=== PATIENT | female | born 1995 | race Caucasian/White ===

== ENCOUNTER 2017-07-02 12:44 | Inpatient (IN) | payer MEDICAID, MEDICARE, OTHER ==
[~2017-07-02] VITALS: Ht 172.7 cm; Wt 52.7 kg
[~2017-07-02 12:44] MED LIST: CARB200T6 PO; CLINT30G TP; CLON.5 PO; LEVO100 PO; QUET200T PO; TOPI25 PO
[2017-07-02] MEDS ORDERED: FLUO-191 PO (13:05)
[2017-07-02] MEDS ORDERED: AMPH30TA3 PO (13:05)
[2017-07-02] MEDS ORDERED: LORazepam 2 MG/ML VIAL IM ONE (13:15)
[2017-07-02] MEDS ORDERED: DiphenhydrAMINE HCL 50 MG/ML VIAL IM ONE (13:15)
[2017-07-02 13:18] LABS: BASOPHILS # (AUTO) 0.02 K/uL (0.00-0.20); BASOPHILS % (AUTO) 0.2 % (0.0-2.0); EOSINOPHILS % (AUTO) 0.02 % (1.0-6.0); HEMATOCRIT 42.4 % (36-46); HEMOGLOBIN 13.7 g/dL (12.0-16.0); LYMPHOCYTES # (AUTO) 2.5 K/uL (1.0-4.8); LYMPHOCYTES % (AUTO) 24.4 % (22.0-44.0); MEAN CORPUSCULAR HEMOGLOBIN 32.2 pg (26.0-34.0); MEAN CORPUSCULAR HGB CONC 32.3 G/dL (31.0-37.0); MEAN CORPUSCULAR VOLUME 100 fL (80-100); MONOCYTES # (AUTO) 0.5 K/uL (0.1-1.0); MONOCYTES % (AUTO) 4.7 % (2.0-9.0); NEUTROPHILS # (AUTO) 7.1 K/uL (1.8-7.7); NEUTROPHILS % (AUTO) 70.7 % (40.0-70.0); PLATELET COUNT (AUTO) 331 K/uL (150-450); RED BLOOD CELL COUNT(AUTO) 4.25 MIL/uL (4.00-5.20); RED CELL DISTRIBUTION WIDTH 13.4 % (11.5-14.5); WHITE BLOOD COUNT (AUTO) 10.1 K/uL (4.5-11.0)
[2017-07-02 13:30] LABS: ANION GAP 17 mmol/L (8-16); CALCIUM, TOTAL 9.7 mg/dL (8.8-10.5); CARBON DIOXIDE 23 mmol/L (22-29); CHLORIDE 101 mmol/L (98-107); CREATININE 1.05 mg/dL (0.60-1.30); GLOMERULAR FILTR. RATE CALC > 60 mL/min (>60); POTASSIUM 4.2 mmol/L (3.5-5.1); SODIUM SERUM 141 mmol/L (136-145); UREA NITROGEN, BLOOD 5 mg/dL (7-18)
[2017-07-02 13:43] LABS: ALANINE AMINOTRANSFERASE 31 U/L (12-78); ALBUMIN 4.5 g/dL (3.4-5.0); ASPARTATE AMINOTRANSFERASE 31 U/L (15-37); BILIRUBIN,TOTAL 0.4 mg/dL (0.1-1.0); THYROID STIMULATING HORMONE 33.01 uIU/mL (0.36-3.74)
[2017-07-02] MEDS ORDERED: HALOPERIDOL LACTATE 5 MG/ML VIAL IM ONE (13:45)
[2017-07-02] MEDS ORDERED: LEVOTHYROXINE SODIUM 100 MCG TABLET PO ONE (15:15)
[2017-07-02] MEDS ORDERED: PERTUSS(ACELL),DIPH,TET VAC/PF 0.5 ML VIAL IM ONE (16:15)
[2017-07-02] MEDS ORDERED: SODIUM CHLORIDE 0.9% 250 ML IRRIG SOLUTION BOTTLE IRRIG ONE (16:15)
[2017-07-02 16:48] LABS: SALICYLATE < 2.8 mg/dL (2.8-20.0)
[2017-07-02 16:52] LABS: ACETAMINOPHEN < 2 mcg/mL (10-30)
[2017-07-02] MEDS ORDERED: LORazepam 2 MG TABLET PO PRN (17:30)
[2017-07-02 17:53] LABS: CHOL/HDL RATIO 2.1 (3.9-5.7)
[2017-07-02 18:59] VITALS: BP 133/76
[2017-07-02] MEDS ORDERED: ACETAMINOPHEN 325 MG TABLET PO PRN (21:15)
[2017-07-02] MEDS ORDERED: IBUPROFEN 400 MG TABLET PO PRN (21:15)
[2017-07-03] MEDS: LEVOTHYROXINE SODIUM 100 MCG TABLET PO SCH (06:56)
[2017-07-03 07:08] LABS: THYROID STIMULATING HORMONE 38.87 uIU/mL (0.36-3.74)
[2017-07-03 08:47] VITALS: BP 125/75
[2017-07-03] MEDS: BACITRACIN 28.4 GM OINTMENT TP SCH (10:55)
[2017-07-03] MEDS: CarBAMazepine 200 MG TABLET PO SCH ×2 (13:24→17:30)
[2017-07-03 16:00] VITALS: BP 122/76
[2017-07-03] MEDS: HALOPERIDOL 5 MG TABLET PO PRN (19:22)
[2017-07-04] MEDS: LEVOTHYROXINE SODIUM 100 MCG TABLET PO SCH (06:58)
[2017-07-04] MEDS ORDERED: LEVOTHYROXINE SODIUM 100 MCG TABLET PO SCH (07:00)
[2017-07-04 08:00] VITALS: BP 115/77
[2017-07-04] MEDS: CarBAMazepine 200 MG TABLET PO SCH ×3 (08:08→17:41)
[2017-07-04] MEDS: FLUoxetine HCL 20 MG CAPSULE PO SCH (08:08)
[2017-07-04] MEDS: BACITRACIN 28.4 GM OINTMENT TP SCH (08:09)
[2017-07-04 09:05] VITALS: BP 115/77
[2017-07-04] MEDS ORDERED: ALBUTEROL SULFATE HFA 90 MCG/PUFF 8 GM INHALER IH PRN (10:45)
[2017-07-04] MEDS: HALOPERIDOL 5 MG TABLET PO PRN (20:28)
[2017-07-04 22:52] VITALS: BP 121/82
[2017-07-04] MEDS: ZOLPIDEM TARTRATE 10 MG TABLET PO PRN (23:09)
[2017-07-05] MEDS: LEVOTHYROXINE SODIUM 100 MCG TABLET PO SCH (06:48)
[2017-07-05 08:08] VITALS: BP 149/92
[2017-07-05] MEDS: CarBAMazepine 200 MG TABLET PO SCH ×3 (09:35→16:35)
[2017-07-05] MEDS: FLUoxetine HCL 20 MG CAPSULE PO SCH (09:35)
[2017-07-05] MEDS: BACITRACIN 28.4 GM OINTMENT TP SCH (09:36)
[2017-07-05 17:29] VITALS: BP 129/88
[2017-07-05] MEDS: ZOLPIDEM TARTRATE 10 MG TABLET PO PRN (23:41)
[2017-07-06] MEDS: LEVOTHYROXINE SODIUM 100 MCG TABLET PO SCH (05:59)
[2017-07-06] MEDS: BACITRACIN 28.4 GM OINTMENT TP SCH (08:08)
[2017-07-06] MEDS: FLUoxetine HCL 20 MG CAPSULE PO SCH (08:08)
[2017-07-06] MEDS: CarBAMazepine 200 MG TABLET PO SCH ×3 (08:08→17:02)
[2017-07-06 08:20] VITALS: BP 119/96
[2017-07-06 16:05] VITALS: BP 110/78
[2017-07-06] MEDS ORDERED: MAGNESIUM HYDROXIDE SUSPENSION 30 ML UDCUP PO PRN (16:45)
[2017-07-07 02:46] VITALS: BP 111/74
[2017-07-07] MEDS: LEVOTHYROXINE SODIUM 100 MCG TABLET PO SCH (06:32)
[2017-07-07 08:22] VITALS: BP 125/86
[2017-07-07] MEDS: FLUoxetine HCL 20 MG CAPSULE PO SCH (08:35)
[2017-07-07] MEDS: BACITRACIN 28.4 GM OINTMENT TP SCH (08:35)
[2017-07-07] MEDS: CarBAMazepine 200 MG TABLET PO SCH (08:35)
== END 2017-07-07 12:15 | disposition home or self-care (01) | DRG 885 ==
LOC: EMS 12:45 → EEVIPCON 12:45 → 3EC 17:47
PROVIDERS: ADMIT Psychiatry & Neurology Psychiatry; ATTEND Psychiatry & Neurology Psychiatry
DX: F25.9 Schizoaffective disorder, unspecified (principal); R45.851 Suicidal ideations; Z78.1 Physical restraint status; E03.9 Hypothyroidism, unspecified; E78.5 Hyperlipidemia, unspecified; F31.9 Bipolar disorder, unspecified; F90.9 Attention-deficit hyperactivity disorder, unspecified type; J45.909 Unspecified asthma, uncomplicated; S61.519A Laceration without foreign body of unspecified wrist, initial encounter; Z91.14 Patient's other noncompliance with medication regimen; W45.8XXA Other foreign body or object entering through skin, initial encounter; Y93.89 Activity, other specified; Y92.89 Other specified places as the place of occurrence of the external cause; Y99.8 Other external cause status
CPT/HCPCS: 84439; 84443; 90471; 90715; 96372; 99285; G0480; G0481; J1200; J1630; J2060

== ENCOUNTER 2017-08-08 11:22 | Emergency (ER) | payer MEDICARE, OTHER ==
[~2017-08-08] VITALS: Ht 170.2 cm; Wt 57.3 kg
[~2017-08-08 11:22] MED LIST changes: -CLINT30G TP; -CLON.5 PO; +FLUO-191 PO; -QUET200T PO; -TOPI25 PO
[2017-08-08 16:10] VITALS: BP 132/79
== END 2017-08-08 16:12 | disposition home or self-care (01) ==
LOC: EMS 11:24
DX: Z76.0 Encounter for issue of repeat prescription (principal); E03.9 Hypothyroidism, unspecified; F32.9 Major depressive disorder, single episode, unspecified
CPT/HCPCS: 99283

== ENCOUNTER 2017-08-17 22:47 | Inpatient (IN) | payer MEDICARE, OTHER ==
[~2017-08-17] VITALS: Ht 170.2 cm; Wt 54.6 kg
[2017-08-17] MEDS ORDERED: CLON1 PO (22:55)
[2017-08-17] MEDS ORDERED: ADDE10 PO (22:55)
[2017-08-17] MEDS ORDERED: ALPR1TAB7 PO (22:55)
[2017-08-17] MEDS ORDERED: DiphenhydrAMINE HCL 50 MG/ML VIAL IM ONE (23:15)
[2017-08-17] MEDS ORDERED: HALOPERIDOL LACTATE 5 MG/ML VIAL IM ONE (23:15)
[2017-08-17] MEDS ORDERED: LORazepam 2 MG/ML VIAL IM ONE (23:15)
[2017-08-17 23:59] LABS: BASOPHILS # (AUTO) 0.06 K/uL (0.00-0.20); BASOPHILS % (AUTO) 0.9 % (0.0-2.0); EOSINOPHILS # (AUTO) 0.06 K/uL (0.00-0.70); EOSINOPHILS % (AUTO) 0.84 % (1.0-6.0); HEMATOCRIT 37.1 % (36-46); HEMOGLOBIN 12.6 g/dL (12.0-16.0); LYMPHOCYTES # (AUTO) 1.5 K/uL (1.0-4.8); LYMPHOCYTES % (AUTO) 21.9 % (22.0-44.0); MEAN CORPUSCULAR HEMOGLOBIN 33.2 pg (26.0-34.0); MEAN CORPUSCULAR HGB CONC 33.8 G/dL (31.0-37.0); MEAN CORPUSCULAR VOLUME 98 fL (80-100); MONOCYTES # (AUTO) 0.5 K/uL (0.1-1.0); NEUTROPHILS # (AUTO) 4.8 K/uL (1.8-7.7); NEUTROPHILS % (AUTO) 69.3 % (40.0-70.0); PLATELET COUNT (AUTO) 285 K/uL (150-450); RED BLOOD CELL COUNT(AUTO) 3.78 MIL/uL (4.00-5.20); RED CELL DISTRIBUTION WIDTH 13.6 % (11.5-14.5)
[2017-08-18 00:20] LABS: ALANINE AMINOTRANSFERASE 26 U/L (12-78); ALBUMIN 3.9 g/dL (3.4-5.0); ALKALINE PHOSPHATASE 45 U/L (46-116); ANION GAP 9 mmol/L (8-16); ASPARTATE AMINOTRANSFERASE 27 U/L (15-37); BILIRUBIN,TOTAL 0.4 mg/dL (0.1-1.0); CALCIUM, TOTAL 8.8 mg/dL (8.8-10.5); CARBON DIOXIDE 29 mmol/L (22-29); CHLORIDE 102 mmol/L (98-107); CREATININE 1.06 mg/dL (0.60-1.30); GLOMERULAR FILTR. RATE CALC > 60 mL/min (>60); GLUCOSE,RANDOM 110 mg/dL (70-110); SODIUM SERUM 140 mmol/L (136-145); TOTAL PROTEIN, SERUM 7.4 g/dL (6.4-8.2); UREA NITROGEN, BLOOD 17 mg/dL (7-18)
[2017-08-18] MEDS ORDERED: POTASSIUM CHLORIDE 20 MEQ ER TABLET PO ONE (01:00)
[2017-08-18] MEDS ORDERED: OLANZapine 5 MG RAPDIS TABLET PO PRN (01:15)
[2017-08-18 03:10] VITALS: BP 115/62
[2017-08-18] MEDS ORDERED: INFLUENZA VIRUS VACCINE QVS 2017-18 (3YR+)/PF 60 MCG/0.5 ML SYRINGE IM ONE (07:30)
[2017-08-18 08:47] VITALS: BP 115/68
[2017-08-18 16:20] VITALS: BP 107/61
[2017-08-18] MEDS: DIVALPROEX SODIUM 500 MG DR TABLET PO SCH (16:37)
[2017-08-19 06:46] VITALS: BP 114/63
[2017-08-19] MEDS: LEVOTHYROXINE SODIUM 100 MCG TABLET PO SCH (06:52)
[2017-08-19 08:04] LABS: CHOL/HDL RATIO 2.7 (3.9-5.7); CHOLESTEROL 171 mg/dL (131-200); FREE T4 (FREE THYROXINE) 1.21 ng/dL (0.76-1.46); HCG,QUANTITATIVE < 1 mIU/mL (0-6); HDL CHOLESTEROL 64 mg/dL (40-60); LDL CHOL (CALC.) 89 mg/dL (0-130); POTASSIUM 4.1 mmol/L (3.5-5.1); THYROID STIMULATING HORMONE 0.06 uIU/mL (0.36-3.74); TRIGLYCERIDES 91 mg/dL (15-150)
[2017-08-19 08:30] VITALS: BP 118/72
[2017-08-19] MEDS: DIVALPROEX SODIUM 500 MG DR TABLET PO SCH ×2 (08:55→16:38)
[2017-08-19] MEDS: LORazepam 2 MG TABLET PO PRN ×2 (10:33→16:38)
[2017-08-19] MEDS ORDERED: PROMETHAZINE HCL 25 MG TABLET PO PRN (11:00)
[2017-08-19] MEDS ORDERED: GuaiFENesin/D-METHORPHAN [SUGAR-FREE] 200-20MG/10 ML SYRUP UDCUP PO PRN (11:00)
[2017-08-19] MEDS ORDERED: ACETAMINOPHEN 325 MG TABLET PO PRN (11:00)
[2017-08-19] MEDS ORDERED: MAG HYDROX/AL HYDROX/SIMETH ES 30 ML SUSPENSION UDCUP PO PRN (11:00)
[2017-08-19] MEDS ORDERED: LOPERAMIDE HCL 2 MG CAPSULE PO PRN (11:00)
[2017-08-19] MEDS ORDERED: OLANZapine 5 MG RAPDIS TABLET PO PRN (11:00)
[2017-08-19] MEDS ORDERED: TUBERCULIN, PURIFIED PROTEIN DERIVATIVE 5 TU/0.1 ML SYG ID ONE (11:00)
[2017-08-19] MEDS ORDERED: MAGNESIUM HYDROXIDE SUSPENSION 30 ML UDCUP PO PRN (11:00)
[2017-08-19 16:00] VITALS: BP 122/75
[2017-08-19] MEDS: THIAMINE HCL 100 MG TABLET PO SCH (16:38)
[2017-08-19] MEDS: HydrOXYzine PAMOATE 50 MG CAPSULE PO PRN (20:28)
[2017-08-19] MEDS: ZOLPIDEM TARTRATE 10 MG TABLET PO PRN (21:05)
[2017-08-20] MEDS: LEVOTHYROXINE SODIUM 100 MCG TABLET PO SCH (06:14)
[2017-08-20 06:47] VITALS: BP 129/69
[2017-08-20] MEDS: FOLIC ACID 1 MG TABLET PO SCH (08:24)
[2017-08-20] MEDS: LORazepam 2 MG TABLET PO PRN ×4 (08:24→21:12)
[2017-08-20] MEDS: HydrOXYzine PAMOATE 50 MG CAPSULE PO PRN ×2 (08:24→13:18)
[2017-08-20] MEDS: DIVALPROEX SODIUM 500 MG DR TABLET PO SCH ×2 (08:24→16:50)
[2017-08-20] MEDS: MULTIVITAMINS WITH MINERALS, THERAPEUTIC TABLET PO SCH (08:24)
[2017-08-20 08:26] VITALS: BP 127/68
[2017-08-20] MEDS: THIAMINE HCL 100 MG TABLET PO SCH ×2 (08:40→16:50)
[2017-08-20 16:00] VITALS: BP 107/59
[2017-08-20] MEDS: CarBAMazepine 200 MG TABLET PO SCH (16:50)
[2017-08-20] MEDS: ZOLPIDEM TARTRATE 10 MG TABLET PO PRN (20:03)
[2017-08-21] MEDS: LEVOTHYROXINE SODIUM 100 MCG TABLET PO SCH (06:16)
[2017-08-21 07:09] VITALS: BP 128/80
[2017-08-21 08:11] VITALS: BP 106/71
[2017-08-21] MEDS: FOLIC ACID 1 MG TABLET PO SCH (08:12)
[2017-08-21] MEDS: MULTIVITAMINS WITH MINERALS, THERAPEUTIC TABLET PO SCH (08:12)
[2017-08-21] MEDS: DIVALPROEX SODIUM 500 MG DR TABLET PO SCH (08:12)
[2017-08-21] MEDS: CarBAMazepine 200 MG TABLET PO SCH (08:12)
[2017-08-21] MEDS: THIAMINE HCL 100 MG TABLET PO SCH (08:13)
[2017-08-21] MEDS ORDERED: DIVA250T4 PO (08:26)
[2017-08-21] MEDS ORDERED: FLUoxetine HCL 20 MG CAPSULE PO SCH (09:00)
== END 2017-08-21 10:45 | disposition home or self-care (01) | DRG 885 ==
LOC: EMS 22:55 → B3A 08-18 01:48
PROVIDERS: ADMIT Psychiatry & Neurology Psychiatry; ATTEND Psychiatry & Neurology Psychiatry
DX: F25.9 Schizoaffective disorder, unspecified (principal); R45.851 Suicidal ideations; F39 Unspecified mood [affective] disorder; F32.9 Major depressive disorder, single episode, unspecified; F41.9 Anxiety disorder, unspecified; F90.9 Attention-deficit hyperactivity disorder, unspecified type; R63.0 Anorexia; F44.81 Dissociative identity disorder; Z53.29 Procedure and treatment not carried out because of patient's decision for other reasons; J45.909 Unspecified asthma, uncomplicated; E03.9 Hypothyroidism, unspecified; E78.5 Hyperlipidemia, unspecified; Z79.899 Other long term (current) drug therapy
CPT/HCPCS: 84132; 84439; 84443; 90471; 96372; 99285; G0480; J1200; J1630; J2060

== ENCOUNTER 2019-07-05 20:13 | Inpatient (IN) | payer MEDICARE, MEDICAID ==
[~2019-07-05] VITALS: Ht 167.6 cm; Wt 63.5 kg
[~2019-07-05 20:13] MED LIST changes: +DIVA250T4 PO
[2019-07-05 20:38] LABS: GLUCOSE,POINT OF CARE 104 MG/DL (70-110)
[2019-07-05 21:41] LABS: BASOPHILS % (AUTO) 0.3 % (0.0-2.0); EOSINOPHILS % (AUTO) 0.9 % (1.0-6.0); HEMATOCRIT 40.4 % (36-46); HEMOGLOBIN 13.6 g/dL (12.0-16.0); LYMPHOCYTES # (AUTO) 0.9 K/uL (1.0-4.8); LYMPHOCYTES % (AUTO) 9.8 % (22.0-44.0); MEAN CORPUSCULAR HEMOGLOBIN 32.9 pg (26.0-34.0); MEAN CORPUSCULAR HGB CONC 33.8 G/dL (31.0-37.0); MEAN CORPUSCULAR VOLUME 97 fL (80-100); MONOCYTES # (AUTO) 0.6 K/uL (0.1-1.0); MONOCYTES % (AUTO) 6.9 % (2.0-9.0); NEUTROPHILS # (AUTO) 7.4 K/uL (1.8-7.7); NEUTROPHILS % (AUTO) 82.1 % (40.0-70.0); PLATELET COUNT (AUTO) 336 K/uL (150-450); RED BLOOD CELL COUNT(AUTO) 4.15 MIL/uL (4.00-5.20); RED CELL DISTRIBUTION WIDTH 12.8 % (11.5-14.5)
[2019-07-05 21:50] LABS: APPEARANCE,URINE CLOUDY (CLEAR); BILIRUBIN,URINE NEGATIVE (NEGATIVE); GLUCOSE, URINE (UA) NEGATIVE (NEGATIVE); KETONES,URINE NEGATIVE (NEGATIVE); LEUKOCYTE ESTERASE ,URINE TRACE (NEGATIVE); NITRATE,URINE NEGATIVE (NEGATIVE); OCCULT BLOOD,URINE TRACE (NEGATIVE); PH,URINE 5.5 (5.0-8.0); PROTEIN,URINE TRACE (NEGATIVE); UROBILINOGEN,URINE 0.2 mg/dL (<=1.0)
[2019-07-05 21:52] LABS: AMPHET/METH SCREEN,URINE POSITIVE (NEGATIVE); BARBITURATE SCREEN, URINE NEGATIVE (NEGATIVE); BENZODIAZEPINES SCREEN,URINE NEGATIVE (NEGATIVE); CANNABINOID SCREEN,URINE POSITIVE (NEGATIVE); COCAINE SCREEN,URINE NEGATIVE (NEGATIVE); METHADONE SCREEN, URINE NEGATIVE (NEGATIVE); OPIATE SCREEN,URINE NEGATIVE (NEGATIVE)
[2019-07-05 21:53] LABS: ANION GAP 11 mmol/L (8-16); CALCIUM, TOTAL 9.5 mg/dL (8.8-10.5); CARBON DIOXIDE 25 mmol/L (22-29); CHLORIDE 100 mmol/L (98-107); CREATININE 0.82 mg/dL (0.60-1.30); GLOMERULAR FILTR. RATE CALC > 60 mL/min (>60); GLUCOSE,RANDOM 104 mg/dL (70-110); POTASSIUM 3.9 mmol/L (3.5-5.1); SODIUM SERUM 136 mmol/L (136-145)
[2019-07-05 21:53] LABS: PHENCYCLIDINE SCREEN,URINE NEGATIVE (NEGATIVE)
[2019-07-05 21:59] LABS: ALANINE AMINOTRANSFERASE 21 U/L (12-78); ALKALINE PHOSPHATASE 59 U/L (46-116); ASPARTATE AMINOTRANSFERASE 21 U/L (15-37); BILIRUBIN,TOTAL 0.5 mg/dL (0.1-1.0); TOTAL PROTEIN, SERUM 7.5 g/dL (6.4-8.2)
[2019-07-05 22:00] LABS: RBC,URINE 0-2 /HPF (0-2); SQUAMOUS EPITHELIAL CELL,UR Many /LPF (None Seen)
[2019-07-05 22:01] LABS: BACTERIA,URINE Few /HPF (None Seen)
[2019-07-05 22:11] LABS: UREA NITROGEN, BLOOD 5 mg/dL (7-18)
[2019-07-05] MEDS ORDERED: SODIUM CHLORIDE 0.9% 1,000 ML IV ONE (22:30)
[2019-07-05] MEDS ORDERED: LORazepam 1 MG TABLET PO ONE (22:30)
[2019-07-05 22:43] LABS: SALICYLATE 1.6 mg/dL (2.8-20.0)
[2019-07-05] MEDS ORDERED: LORazepam 2 MG/ML VIAL IVP ONE ×2 (22:45→23:00)
[2019-07-05] MEDS ORDERED: ONDANSETRON HCL 4 MG/2 ML VIAL IVP PRN (22:45)
[2019-07-05] MEDS ORDERED: 0.9% SODIUM CHLORIDE 10 ML SYRINGE IVP PRN (22:45)
[2019-07-05] MEDS ORDERED: ACETAMINOPHEN 325 MG TABLET PO PRN (22:45)
[2019-07-05 23:03] LABS: CREATINE KINASE, TOTAL ONLY 167 U/L (26-192)
[2019-07-05 23:13] LABS: ACETAMINOPHEN < 2 mcg/mL (10-30); CARBAMAZEPINE (TEGRETOL) < 0.5 mcg/mL (4.0-12.0); THYROID STIMULATING HORMONE < 0.01 uIU/mL (0.36-3.74)
[2019-07-06 01:24] VITALS: BP 154/95
[2019-07-06 05:12] VITALS: BP 152/95
[2019-07-06 07:47] VITALS: BP 138/82
[2019-07-06] MEDS ORDERED: LEVO125T4 PO (09:56)
[2019-07-06] MEDS ORDERED: AMPH30TA3 PO (09:58)
[2019-07-06] MEDS ORDERED: ClonazePAM 1 MG TABLET PO ONE (10:00)
[2019-07-06] MEDS ORDERED: ClonazePAM 0.5 MG TABLET PO ONE (10:00)
[2019-07-06] MEDS ORDERED: LEVOTHYROXINE SODIUM 125 MCG TABLET PO ONE (10:00)
[2019-07-06 11:41] VITALS: BP 143/65
[2019-07-06 15:30] VITALS: BP 123/70
[2019-07-06 19:35] VITALS: BP 147/82
[2019-07-06] MEDS: ClonazePAM 0.5 MG TABLET PO SCH (20:18)
[2019-07-06] MEDS ORDERED: ClonazePAM 1 MG TABLET PO SCH (21:00)
[2019-07-07] VITALS (7 sets, daily range): BP systolic 128–162; BP diastolic 69–99
[2019-07-07] MEDS ORDERED: ONDANSETRON HCL 4 MG/2 ML VIAL IVP PRN (04:15)
[2019-07-07] MEDS ORDERED: BISACODYL 10 MG RECTAL RECTAL SUPPOSITORY PR PRN (04:15)
[2019-07-07] MEDS ORDERED: ACETAMINOPHEN 325 MG TABLET PO PRN (04:15)
[2019-07-07] MEDS ORDERED: ZOLPIDEM TARTRATE 5 MG TABLET PO PRN (04:15)
[2019-07-07] MEDS ORDERED: MAGNESIUM HYDROXIDE SUSPENSION 30 ML UDCUP PO PRN (04:15)
[2019-07-07] MEDS ORDERED: IPRATROPIUM BROMIDE 0.5 MG/2.5 ML NEB SOLUTION NEB PRN (04:15)
[2019-07-07] MEDS ORDERED: ALBUTEROL SULFATE 2.5 MG/0.5 ML NEB SOLUTION NEB PRN (04:15)
[2019-07-07] MEDS ORDERED: LEVOTHYROXINE SODIUM 125 MCG TABLET PO SCH (06:30)
[2019-07-07] MEDS ORDERED: LEVOTHYROXINE SODIUM 100 MCG TABLET PO SCH (06:30)
[2019-07-07] MEDS ORDERED: HEPARIN SODIUM,PORCINE 5,000 UNITS/ML VIAL SQ SCH (08:00)
[2019-07-07] MEDS: FAMOTIDINE 20 MG TABLET PO SCH ×2 (09:33→21:32)
[2019-07-07] MEDS: DOCUSATE SODIUM 100 MG CAPSULE PO SCH ×2 (09:33→21:00)
[2019-07-07] MEDS: ClonazePAM 0.5 MG TABLET PO SCH ×2 (09:34→21:39)
[2019-07-07] MEDS: AMPHETAMINE/DEXTROAMPHETAMINE 10 MG TABLET PO SCH (09:34)
[2019-07-07] MEDS: CarBAMazepine 200 MG TABLET PO SCH ×2 (12:30→21:32)
[2019-07-07] MEDS: FLUoxetine HCL 20 MG CAPSULE PO SCH (12:30)
[2019-07-08] MEDS: CarBAMazepine 200 MG TABLET PO SCH ×2 (00:45→08:22)
[2019-07-08] MEDS: ClonazePAM 0.5 MG TABLET PO SCH ×2 (00:45→08:23)
[2019-07-08] MEDS: FAMOTIDINE 20 MG TABLET PO SCH ×2 (00:45→08:22)
[2019-07-08 04:28] VITALS: BP 113/86
[2019-07-08 07:09] VITALS: BP 122/63
[2019-07-08 07:11] LABS: BASOPHILS % (AUTO) 0.5 % (0.0-2.0); EOSINOPHILS % (AUTO) 12.6 % (1.0-6.0); HEMATOCRIT 36.7 % (36-46); HEMOGLOBIN 12.7 g/dL (12.0-16.0); LYMPHOCYTES # (AUTO) 2.1 K/uL (1.0-4.8); LYMPHOCYTES % (AUTO) 39.4 % (22.0-44.0); MEAN CORPUSCULAR HEMOGLOBIN 33.2 pg (26.0-34.0); MEAN CORPUSCULAR HGB CONC 34.6 G/dL (31.0-37.0); MEAN CORPUSCULAR VOLUME 96 fL (80-100); MONOCYTES # (AUTO) 0.4 K/uL (0.1-1.0); MONOCYTES % (AUTO) 8.4 % (2.0-9.0); NEUTROPHILS % (AUTO) 39.1 % (40.0-70.0); PLATELET COUNT (AUTO) 272 K/uL (150-450); RED BLOOD CELL COUNT(AUTO) 3.83 MIL/uL (4.00-5.20); RED CELL DISTRIBUTION WIDTH 12.5 % (11.5-14.5)
[2019-07-08 07:32] LABS: ALANINE AMINOTRANSFERASE 23 U/L (12-78); ALBUMIN 3.2 g/dL (3.4-5.0); ALKALINE PHOSPHATASE 39 U/L (46-116); ANION GAP 6 mmol/L (8-16); ASPARTATE AMINOTRANSFERASE 24 U/L (15-37); BILIRUBIN,TOTAL 0.6 mg/dL (0.1-1.0); CALCIUM, TOTAL 8.4 mg/dL (8.8-10.5); CARBON DIOXIDE 29 mmol/L (22-29); CHLORIDE 100 mmol/L (98-107); CREATININE 0.79 mg/dL (0.60-1.30); GLOMERULAR FILTR. RATE CALC > 60 mL/min (>60); GLUCOSE,RANDOM 110 mg/dL (70-110); SODIUM SERUM 135 mmol/L (136-145); TOTAL PROTEIN, SERUM 6.1 g/dL (6.4-8.2); UREA NITROGEN, BLOOD 3 mg/dL (7-18)
[2019-07-08 07:59] LABS: POTASSIUM 2.8 mmol/L (3.5-5.1)
[2019-07-08] MEDS: AMPHETAMINE/DEXTROAMPHETAMINE 10 MG TABLET PO SCH (08:23)
[2019-07-08] MEDS: FLUoxetine HCL 20 MG CAPSULE PO SCH (08:23)
[2019-07-08] MEDS ORDERED: POTASSIUM CHLORIDE 20 MEQ ER TABLET PO PRN (08:30)
[2019-07-08] MEDS: DOCUSATE SODIUM 100 MG CAPSULE PO SCH ×2 (08:30→21:00)
[2019-07-08] MEDS ORDERED: SODIUM CHLORIDE 0.9% 1,000 ML IV ONE (09:32)
[2019-07-08] MEDS: POTASSIUM CHL 10 MEQ/WATER 50 ML IV PRN ×3 (09:54→17:25)
[2019-07-08 11:00] VITALS: BP 142/78
[2019-07-08] MEDS ORDERED: GADOBUTROL 1 MMOL/ML 10 ML VIAL IVP ONE (16:51)
[2019-07-08 17:36] VITALS: BP 159/95
[2019-07-08 19:25] VITALS: BP 128/99
[2019-07-08 23:00] VITALS: BP 136/87
[2019-07-09] MEDS: CarBAMazepine 200 MG TABLET PO SCH ×2 (00:45→09:33)
[2019-07-09] MEDS: POTASSIUM CHL 10 MEQ/WATER 50 ML IV PRN (00:45)
[2019-07-09] MEDS: FAMOTIDINE 20 MG TABLET PO SCH ×2 (00:45→09:32)
[2019-07-09] MEDS: ClonazePAM 0.5 MG TABLET PO SCH ×2 (00:45→09:33)
[2019-07-09 05:11] VITALS: BP 125/66
[2019-07-09 07:01] LABS: ANION GAP 7 mmol/L (8-16); CALCIUM, TOTAL 8.6 mg/dL (8.8-10.5); CARBON DIOXIDE 30 mmol/L (22-29); CHLORIDE 104 mmol/L (98-107); CREATININE 0.78 mg/dL (0.60-1.30); GLOMERULAR FILTR. RATE CALC > 60 mL/min (>60); GLUCOSE,RANDOM 81 mg/dL (70-110); POTASSIUM 3.7 mmol/L (3.5-5.1); SODIUM SERUM 141 mmol/L (136-145); UREA NITROGEN, BLOOD 2 mg/dL (7-18)
[2019-07-09 07:22] VITALS: BP 124/74
[2019-07-09] MEDS: FLUoxetine HCL 20 MG CAPSULE PO SCH (09:32)
[2019-07-09] MEDS: AMPHETAMINE/DEXTROAMPHETAMINE 10 MG TABLET PO SCH (09:32)
[2019-07-09] MEDS: DOCUSATE SODIUM 100 MG CAPSULE PO SCH (09:32)
== END 2019-07-09 12:15 | disposition home or self-care (01) | DRG 72 ==
LOC: EMS 20:14 → 5N 07-06 00:20
PROVIDERS: ADMIT Hospitalist; ATTEND Hospitalist
DX: G93.41 Metabolic encephalopathy (principal); F98.8 Other specified behavioral and emotional disorders with onset usually occurring in childhood and adolescence; F31.9 Bipolar disorder, unspecified; E05.90 Thyrotoxicosis, unspecified without thyrotoxic crisis or storm; E87.6 Hypokalemia; E03.9 Hypothyroidism, unspecified; F90.9 Attention-deficit hyperactivity disorder, unspecified type; F25.1 Schizoaffective disorder, depressive type; F12.10 Cannabis abuse, uncomplicated; F90.0 Attention-deficit hyperactivity disorder, predominantly inattentive type; Z82.0 Family history of epilepsy and other diseases of the nervous system
CPT/HCPCS: 70450; 70553; 84439; 84443; 93005; 93306; 93880; 97116; 97161; A9585; G0480; G0481; J1644; J2060; J3480; J7030

== ENCOUNTER 2022-05-03 23:54 | Inpatient (IN) | payer BC, MEDICAID ==
[~2022-05-03] VITALS: Ht 170.2 cm; Wt 54.9 kg
[~2022-05-03 23:54] MED LIST changes: +AMPH30TA3 PO; -DIVA250T4 PO; +FLUO-177 PO; -FLUO-191 PO; -LEVO100 PO
[2022-05-04 02:10] LABS: BASOPHILS % (AUTO) 0.6 % (0.0-2.0); EOSINOPHILS % (AUTO) 1.8 % (1.0-6.0); HEMATOCRIT 36.2 % (36-46); LYMPHOCYTES # (AUTO) 1.7 K/uL (1.0-4.8); LYMPHOCYTES % (AUTO) 29.3 % (22.0-44.0); MEAN CORPUSCULAR HEMOGLOBIN 31.3 pg (26.0-34.0); MEAN CORPUSCULAR HGB CONC 33.2 G/dL (31.0-37.0); MEAN CORPUSCULAR VOLUME 94 fL (80-100); MONOCYTES # (AUTO) 0.4 K/uL (0.1-1.0); MONOCYTES % (AUTO) 6.8 % (2.0-9.0); NEUTROPHILS # (AUTO) 3.7 K/uL (1.8-7.7); NEUTROPHILS % (AUTO) 61.5 % (40.0-70.0); PLATELET COUNT (AUTO) 317 K/uL (150-450); RED BLOOD CELL COUNT(AUTO) 3.84 MIL/uL (4.00-5.20); RED CELL DISTRIBUTION WIDTH 14.8 % (11.5-14.5)
[2022-05-04 02:27] LABS: ANION GAP 7 mmol/L (8-16); CALCIUM, TOTAL 9.6 mg/dL (8.8-10.5); CARBON DIOXIDE 29 mmol/L (22-29); CHLORIDE 105 mmol/L (98-107); CREATININE 0.92 mg/dL (0.60-1.30); GLUCOSE,RANDOM 97 mg/dL (70-110); POTASSIUM 3.6 mmol/L (3.5-5.1); SODIUM SERUM 141 mmol/L (136-145); UREA NITROGEN, BLOOD 10 mg/dL (7-18)
[2022-05-04 02:32] LABS: ALANINE AMINOTRANSFERASE 15 U/L (12-78); ALBUMIN 4.2 g/dL (3.4-5.0); ALKALINE PHOSPHATASE 41 U/L (46-116); ASPARTATE AMINOTRANSFERASE 14 U/L (15-37); BILIRUBIN,TOTAL 0.6 mg/dL (0.1-1.0); TOTAL PROTEIN, SERUM 7.6 g/dL (6.4-8.2)
[2022-05-04 02:36] LABS: GLOMERULAR FILTR. RATE CALC > 60 mL/min (>60)
[2022-05-04 02:46] LABS: SALICYLATE 0.6 mg/dL (2.8-20.0)
[2022-05-04 02:57] LABS: ACETAMINOPHEN < 2 mcg/mL (10-30); HCG,QUANTITATIVE < 1 mIU/mL (0-6); THYROID STIMULATING HORMONE 0.09 uIU/mL (0.36-3.74)
[2022-05-04] MEDS ORDERED: PRAZ1 PO (04:10)
[2022-05-04] MEDS ORDERED: CLON-592 PO (04:10)
[2022-05-04] MEDS ORDERED: LEVO112T4 PO (04:10)
[2022-05-04] MEDS ORDERED: D AM PO (04:10)
[2022-05-04] MEDS ORDERED: ZOLPIDEM TARTRATE 10 MG TABLET PO PRN (04:45)
[2022-05-04 05:36] LABS: COVID AG,FIA SOURCE NASAL SWAB
[2022-05-04 05:45] LABS: AMPHET/METH SCREEN,URINE POSITIVE (NEGATIVE); BARBITURATE SCREEN, URINE NEGATIVE (NEGATIVE); BENZODIAZEPINES SCREEN,URINE POSITIVE (NEGATIVE); CANNABINOID SCREEN,URINE NEGATIVE (NEGATIVE); COCAINE SCREEN,URINE NEGATIVE (NEGATIVE); METHADONE SCREEN, URINE NEGATIVE (NEGATIVE); OPIATE SCREEN,URINE NEGATIVE (NEGATIVE)
[2022-05-04 05:46] LABS: PHENCYCLIDINE SCREEN,URINE NEGATIVE (NEGATIVE)
[2022-05-04] MEDS ORDERED: LOPERAMIDE HCL 2 MG CAPSULE PO PRN (07:45)
[2022-05-04] MEDS ORDERED: ONDANSETRON HCL 4 MG TABLET PO PRN (07:45)
[2022-05-04] MEDS ORDERED: NICOTINE 14 MG/24 HOUR PATCH TD PRN (07:45)
[2022-05-04] MEDS ORDERED: CloNIDine HCL 0.1 MG TABLET PO PRN (07:45)
[2022-05-04] MEDS ORDERED: DOCUSATE SODIUM 100 MG CAPSULE PO PRN (07:45)
[2022-05-04] MEDS ORDERED: MAG HYDROX/AL HYDROX/SIMETH ES 30 ML SUSPENSION UDCUP PO PRN (07:45)
[2022-05-04] MEDS ORDERED: PETROLATUM,WHITE 28 GM JELLY TP PRN (07:45)
[2022-05-04] MEDS ORDERED: ALBUTEROL SULFATE HFA 90 MCG/PUFF 8 GM INHALER IH PRN (07:45)
[2022-05-04] MEDS ORDERED: MAGNESIUM HYDROXIDE SUSPENSION 30 ML UDCUP PO PRN (07:45)
[2022-05-04] MEDS ORDERED: IBUPROFEN 400 MG TABLET PO PRN (07:45)
[2022-05-04] MEDS ORDERED: ACETAMINOPHEN 325 MG TABLET PO PRN (07:45)
[2022-05-04] MEDS ORDERED: GuaiFENesin/D-METHORPHAN [SUGAR-FREE] 200-20MG/10 ML SYRUP UDCUP PO PRN (07:45)
[2022-05-04] MEDS ORDERED: LEVOTHYROXINE SODIUM 112 MCG TABLET PO SCH (09:45)
[2022-05-04 09:50] VITALS: BP 113/73
[2022-05-04] MEDS: LORazepam 2 MG TABLET PO PRN (10:05)
[2022-05-04] MEDS ORDERED: QUET25TA36 PO (11:06)
[2022-05-04] MEDS ORDERED: FLUO20CA30 PO (11:06)
[2022-05-04] MEDS: FLUoxetine HCL 20 MG CAPSULE PO SCH (15:22)
[2022-05-04] MEDS: ATOMOXETINE HCL 40 MG CAPSULE PO SCH (15:22)
[2022-05-04] MEDS: LEVOTHYROXINE SODIUM 112 MCG TABLET PO SCH (15:22)
[2022-05-04 16:00] VITALS: BP 133/84
[2022-05-04 20:05] VITALS: BP 116/65
[2022-05-04] MEDS ORDERED: QUEtiapine FUMARATE 25 MG TABLET PO SCH (21:00)
[2022-05-04] MEDS ORDERED: QUEtiapine FUMARATE 100 MG TABLET PO SCH (21:00)
[2022-05-04] MEDS: PRAZOSIN HCL 1 MG CAPSULE PO SCH ×2 (21:00→21:44)
[2022-05-04] MEDS: QUEtiapine FUMARATE 25 MG TABLET PO SCH (21:18)
[2022-05-05] VITALS (7 sets, daily range): BP systolic 11–124; BP diastolic 62–76
[2022-05-05] MEDS ORDERED: LEVOTHYROXINE SODIUM 112 MCG TABLET PO SCH (06:30)
[2022-05-05] MEDS: LEVOTHYROXINE SODIUM 112 MCG TABLET PO SCH (06:39)
[2022-05-05] MEDS: ATOMOXETINE HCL 40 MG CAPSULE PO SCH (08:37)
[2022-05-05] MEDS: VERAPAMIL HCL 120 MG ER TABLET PO SCH (08:37)
[2022-05-05] MEDS: FLUoxetine HCL 20 MG CAPSULE PO SCH (08:37)
[2022-05-05] MEDS ORDERED: ADDE10 PO (11:34)
[2022-05-05] MEDS: LORazepam 2 MG TABLET PO PRN ×2 (12:21→17:22)
[2022-05-05] MEDS: HALOPERIDOL 5 MG TABLET PO PRN ×2 (12:50→17:22)
[2022-05-05] MEDS: PRAZOSIN HCL 1 MG CAPSULE PO SCH (20:09)
[2022-05-05] MEDS: QUEtiapine FUMARATE 25 MG TABLET PO SCH (20:09)
[2022-05-06] MEDS: LEVOTHYROXINE SODIUM 112 MCG TABLET PO SCH (06:43)
[2022-05-06] MEDS: FLUoxetine HCL 20 MG CAPSULE PO SCH (08:17)
[2022-05-06] MEDS: ATOMOXETINE HCL 40 MG CAPSULE PO SCH (08:17)
[2022-05-06] MEDS: VERAPAMIL HCL 120 MG ER TABLET PO SCH (08:17)
[2022-05-06] MEDS: LORazepam 2 MG TABLET PO PRN ×2 (08:20→12:40)
[2022-05-06 08:30] VITALS: BP 120/69
[2022-05-06] MEDS: PRAZOSIN HCL 1 MG CAPSULE PO SCH (20:16)
[2022-05-06] MEDS: QUEtiapine FUMARATE 25 MG TABLET PO SCH (20:20)
[2022-05-07 06:15] VITALS: BP 117/70
[2022-05-07] MEDS: LEVOTHYROXINE SODIUM 112 MCG TABLET PO SCH (06:24)
[2022-05-07] MEDS: ATOMOXETINE HCL 40 MG CAPSULE PO SCH (08:13)
[2022-05-07] MEDS: LORazepam 2 MG TABLET PO PRN ×2 (08:13→14:51)
[2022-05-07] MEDS: FLUoxetine HCL 20 MG CAPSULE PO SCH (08:13)
[2022-05-07] MEDS: VERAPAMIL HCL 120 MG ER TABLET PO SCH (08:13)
[2022-05-07 08:39] VITALS: BP 122/73
[2022-05-07 20:25] VITALS: BP 110/64
[2022-05-07] MEDS: PRAZOSIN HCL 1 MG CAPSULE PO SCH (21:26)
[2022-05-07] MEDS: QUEtiapine FUMARATE 25 MG TABLET PO SCH (21:26)
[2022-05-08] MEDS: LEVOTHYROXINE SODIUM 112 MCG TABLET PO SCH (06:41)
[2022-05-08] MEDS: ATOMOXETINE HCL 40 MG CAPSULE PO SCH (08:00)
[2022-05-08] MEDS: VERAPAMIL HCL 120 MG ER TABLET PO SCH (08:00)
[2022-05-08] MEDS: FLUoxetine HCL 20 MG CAPSULE PO SCH (08:00)
[2022-05-08 08:06] VITALS: BP 118/73
[2022-05-08] MEDS: LORazepam 2 MG TABLET PO PRN (10:43)
[2022-05-08] MEDS: HALOPERIDOL 5 MG TABLET PO PRN (15:46)
[2022-05-08 20:23] VITALS: BP 106/68
[2022-05-08] MEDS: QUEtiapine FUMARATE 25 MG TABLET PO SCH (20:33)
[2022-05-08] MEDS: PRAZOSIN HCL 1 MG CAPSULE PO SCH (20:34)
[2022-05-09] MEDS: LEVOTHYROXINE SODIUM 112 MCG TABLET PO SCH (06:36)
[2022-05-09] MEDS: FLUoxetine HCL 20 MG CAPSULE PO SCH (08:27)
[2022-05-09] MEDS: ATOMOXETINE HCL 40 MG CAPSULE PO SCH (08:27)
[2022-05-09] MEDS: VERAPAMIL HCL 120 MG ER TABLET PO SCH (08:27)
[2022-05-09 08:28] VITALS: BP 100/66
[2022-05-09 08:30] VITALS: BP 108/68
[2022-05-09] MEDS: LORazepam 2 MG TABLET PO PRN ×2 (10:24→15:55)
[2022-05-09] MEDS: HALOPERIDOL 5 MG TABLET PO PRN (13:12)
[2022-05-09 20:29] VITALS: BP 102/63
[2022-05-09] MEDS: QUEtiapine FUMARATE 100 MG TABLET PO SCH (20:40)
[2022-05-09] MEDS: PRAZOSIN HCL 1 MG CAPSULE PO SCH (20:40)
[2022-05-10] MEDS: LEVOTHYROXINE SODIUM 112 MCG TABLET PO SCH (06:28)
[2022-05-10 08:11] VITALS: BP 112/70
[2022-05-10] MEDS: FLUoxetine HCL 20 MG CAPSULE PO SCH (08:35)
[2022-05-10] MEDS: VERAPAMIL HCL 120 MG ER TABLET PO SCH (08:35)
[2022-05-10] MEDS: HALOPERIDOL 5 MG TABLET PO PRN (08:35)
[2022-05-10] MEDS: ATOMOXETINE HCL 40 MG CAPSULE PO SCH (08:35)
[2022-05-10] MEDS: LORazepam 2 MG TABLET PO PRN (17:22)
[2022-05-10 20:17] VITALS: BP 98/59
[2022-05-10] MEDS: PRAZOSIN HCL 1 MG CAPSULE PO SCH (20:20)
[2022-05-10] MEDS: QUEtiapine FUMARATE 100 MG TABLET PO SCH (20:21)
[2022-05-11] MEDS: LEVOTHYROXINE SODIUM 112 MCG TABLET PO SCH (06:13)
[2022-05-11] MEDS: FLUoxetine HCL 20 MG CAPSULE PO SCH (08:06)
[2022-05-11] MEDS: VERAPAMIL HCL 120 MG ER TABLET PO SCH (08:06)
[2022-05-11] MEDS: ATOMOXETINE HCL 40 MG CAPSULE PO SCH (08:06)
[2022-05-11 08:12] VITALS: BP 109/67
[2022-05-11] MEDS: LORazepam 2 MG TABLET PO PRN ×2 (09:07→14:43)
[2022-05-11] MEDS: HALOPERIDOL 5 MG TABLET PO PRN (16:20)
[2022-05-11 20:35] VITALS: BP 112/77
[2022-05-11 20:35] LABS: GLUCOMETER DEV NAME(LOC) POC.BV
[2022-05-11] MEDS: PRAZOSIN HCL 1 MG CAPSULE PO SCH (20:49)
[2022-05-11] MEDS: QUEtiapine FUMARATE 100 MG TABLET PO SCH (20:49)
[2022-05-12 04:26] VITALS: BP 109/65
[2022-05-12] MEDS: LEVOTHYROXINE SODIUM 112 MCG TABLET PO SCH (06:44)
[2022-05-12 08:29] VITALS: BP 100/60
[2022-05-12] MEDS: VERAPAMIL HCL 120 MG ER TABLET PO SCH (09:21)
[2022-05-12] MEDS: ATOMOXETINE HCL 40 MG CAPSULE PO SCH (09:21)
[2022-05-12] MEDS: FLUoxetine HCL 20 MG CAPSULE PO SCH (09:21)
[2022-05-12] MEDS: LORazepam 2 MG TABLET PO PRN ×2 (10:53→15:36)
[2022-05-12] MEDS: HALOPERIDOL 5 MG TABLET PO PRN (12:50)
[2022-05-12 20:15] VITALS: BP 110/62
[2022-05-12] MEDS: PRAZOSIN HCL 1 MG CAPSULE PO SCH (20:42)
[2022-05-12] MEDS: QUEtiapine FUMARATE 100 MG TABLET PO SCH (20:42)
[2022-05-13] MEDS: LEVOTHYROXINE SODIUM 112 MCG TABLET PO SCH (06:38)
[2022-05-13] MEDS: VERAPAMIL HCL 120 MG ER TABLET PO SCH (08:25)
[2022-05-13] MEDS: ATOMOXETINE HCL 40 MG CAPSULE PO SCH (08:25)
[2022-05-13] MEDS: FLUoxetine HCL 20 MG CAPSULE PO SCH (08:32)
[2022-05-13] MEDS: LORazepam 2 MG TABLET PO PRN ×2 (09:56→16:10)
[2022-05-13 10:26] VITALS: BP 96/58
[2022-05-13] MEDS: HALOPERIDOL 5 MG TABLET PO PRN (16:10)
[2022-05-13] MEDS: QUEtiapine FUMARATE 200 MG TABLET PO SCH (20:20)
[2022-05-13] MEDS: PRAZOSIN HCL 1 MG CAPSULE PO SCH (20:20)
[2022-05-13 21:55] VITALS: BP 102/61
[2022-05-14] MEDS: LEVOTHYROXINE SODIUM 112 MCG TABLET PO SCH (07:00)
[2022-05-14] MEDS: ATOMOXETINE HCL 40 MG CAPSULE PO SCH (08:27)
[2022-05-14] MEDS: FLUoxetine HCL 20 MG CAPSULE PO SCH (08:27)
[2022-05-14] MEDS: VERAPAMIL HCL 120 MG ER TABLET PO SCH (08:28)
[2022-05-14 09:15] VITALS: BP 104/64
[2022-05-14] MEDS: LORazepam 2 MG TABLET PO PRN (14:22)
[2022-05-14] MEDS: HALOPERIDOL 5 MG TABLET PO PRN (16:01)
[2022-05-14] MEDS: QUEtiapine FUMARATE 200 MG TABLET PO SCH (20:15)
[2022-05-14] MEDS: PRAZOSIN HCL 1 MG CAPSULE PO SCH (20:15)
[2022-05-14 22:57] VITALS: BP 103/54
[2022-05-15] MEDS: LEVOTHYROXINE SODIUM 112 MCG TABLET PO SCH (06:31)
[2022-05-15] MEDS: ATOMOXETINE HCL 40 MG CAPSULE PO SCH (08:32)
[2022-05-15] MEDS: FLUoxetine HCL 20 MG CAPSULE PO SCH (08:33)
[2022-05-15 09:03] VITALS: BP 100/59
[2022-05-15 11:33] VITALS: BP 108/69
[2022-05-15] MEDS: VERAPAMIL HCL 120 MG ER TABLET PO SCH (11:34)
[2022-05-15] MEDS: LORazepam 2 MG TABLET PO PRN ×2 (12:05→18:18)
[2022-05-15] MEDS: HALOPERIDOL 5 MG TABLET PO PRN (16:06)
[2022-05-15] MEDS: QUEtiapine FUMARATE 200 MG TABLET PO SCH (20:23)
[2022-05-15] MEDS: PRAZOSIN HCL 1 MG CAPSULE PO SCH (20:23)
[2022-05-16] MEDS: LEVOTHYROXINE SODIUM 112 MCG TABLET PO SCH (06:34)
[2022-05-16 07:01] VITALS: BP 103/98
[2022-05-16 08:14] VITALS: BP 106/67
[2022-05-16] MEDS: FLUoxetine HCL 20 MG CAPSULE PO SCH (08:45)
[2022-05-16] MEDS: VERAPAMIL HCL 120 MG ER TABLET PO SCH (08:45)
[2022-05-16] MEDS: ATOMOXETINE HCL 40 MG CAPSULE PO SCH (08:45)
[2022-05-16] MEDS: HALOPERIDOL 5 MG TABLET PO PRN (11:12)
[2022-05-16] MEDS: LORazepam 2 MG TABLET PO PRN (11:12)
[2022-05-16] MEDS: QUEtiapine FUMARATE 200 MG TABLET PO SCH (20:21)
[2022-05-16] MEDS: PRAZOSIN HCL 1 MG CAPSULE PO SCH (20:21)
[2022-05-17] MEDS: LEVOTHYROXINE SODIUM 112 MCG TABLET PO SCH (06:25)
[2022-05-17] MEDS: FLUoxetine HCL 20 MG CAPSULE PO SCH (08:37)
[2022-05-17] MEDS: ATOMOXETINE HCL 40 MG CAPSULE PO SCH (08:37)
[2022-05-17] MEDS: VERAPAMIL HCL 120 MG ER TABLET PO SCH (08:37)
[2022-05-17 08:47] VITALS: BP 107/64
[2022-05-17] MEDS: LORazepam 2 MG TABLET PO PRN ×2 (09:30→14:43)
[2022-05-17] MEDS: HALOPERIDOL 5 MG TABLET PO PRN (14:16)
[2022-05-17] MEDS ORDERED: PRAZ1 PO (14:59)
[2022-05-17] MEDS ORDERED: LEVO112T4 PO (14:59)
[2022-05-17] MEDS ORDERED: FLUO20CA30 PO (14:59)
[2022-05-17] MEDS ORDERED: VERA120T92 PO (14:59)
[2022-05-17] MEDS ORDERED: QUET200T30 PO (14:59)
== END 2022-05-17 17:30 | disposition home or self-care (01) | DRG 885 ==
LOC: EMS 23:55 → B3A 05-04 06:08
PROVIDERS: ADMIT Psychiatry & Neurology Psychiatry; ATTEND Psychiatry & Neurology Psychiatry
DX: F25.0 Schizoaffective disorder, bipolar type (principal); T42.4X2A Poisoning by benzodiazepines, intentional self-harm, initial encounter; R45.851 Suicidal ideations; F90.9 Attention-deficit hyperactivity disorder, unspecified type; F39 Unspecified mood [affective] disorder; F44.81 Dissociative identity disorder; E78.5 Hyperlipidemia, unspecified; R63.0 Anorexia; F43.12 Post-traumatic stress disorder, chronic; J45.909 Unspecified asthma, uncomplicated; Z20.822 Contact with and (suspected) exposure to COVID-19; T44.6X2A Poisoning by alpha-adrenoreceptor antagonists, intentional self-harm, initial encounter; F98.8 Other specified behavioral and emotional disorders with onset usually occurring in childhood and adolescence; Y92.89 Other specified places as the place of occurrence of the external cause; Z79.899 Other long term (current) drug therapy; Z91.51 Personal history of suicidal behavior
CPT/HCPCS: 80053; 83735; 84100; 84443; 84702; 85025; 93005; 99285; G0480; G0481

== ENCOUNTER 2023-01-22 14:00 | Inpatient (IN) | payer MEDICARE, MEDICAID ==
[~2023-01-22] VITALS: Ht 170.2 cm; Wt 53.3 kg
[~2023-01-22 14:00] MED LIST changes: -AMPH30TA3 PO; -CARB200T6 PO; -FLUO-177 PO; +LEVO112T4 PO; +PRAZ1 PO; +PROZ20 PO; +VERA120T92 PO
[2023-01-22] MEDS ORDERED: LevETIRAcetam 1,000 MG in DEXTROSE 5%-WATER 100 ML IV ONE (14:30)
[2023-01-22] MEDS ORDERED: QUET100T34 PO (14:52)
[2023-01-22 15:01] LABS: ANION GAP 7 mmol/L (8-16); CALCIUM, TOTAL 9.2 mg/dL (8.8-10.5); CARBON DIOXIDE 29 mmol/L (22-29); CHLORIDE 103 mmol/L (98-107); CREATININE 0.85 mg/dL (0.60-1.30); GLOMERULAR FILTR. RATE CALC > 60 mL/min (>60); GLUCOSE,RANDOM 103 mg/dL (70-110); POTASSIUM 3.6 mmol/L (3.5-5.1); SODIUM SERUM 139 mmol/L (136-145)
[2023-01-22 15:06] LABS: COVID AG,FIA SOURCE NASOPHARYNGEAL
[2023-01-22 15:07] LABS: ALBUMIN 3.6 g/dL (3.4-5.0); ASPARTATE AMINOTRANSFERASE 9 U/L (15-37); BILIRUBIN,TOTAL 0.3 mg/dL (0.1-1.0); PHOSPHORUS 2.9 mg/dL (2.5-4.9); TOTAL PROTEIN, SERUM 7.3 g/dL (6.4-8.2)
[2023-01-22 15:18] LABS: EOSINOPHILS % (AUTO) 2.7 % (1.0-6.0); LYMPHOCYTES # (AUTO) 1.4 K/uL (1.0-4.8); LYMPHOCYTES % (AUTO) 37.3 % (22.0-44.0); MEAN CORPUSCULAR HGB CONC 33.3 G/dL (31.0-37.0); MEAN CORPUSCULAR VOLUME 96 fL (80-100); MONOCYTES # (AUTO) 0.3 K/uL (0.1-1.0); MONOCYTES % (AUTO) 8.5 % (2.0-9.0); NEUTROPHILS # (AUTO) 1.8 K/uL (1.8-7.7); NEUTROPHILS % (AUTO) 50.5 % (40.0-70.0); PLATELET COUNT (AUTO) 331 K/uL (150-450); RED BLOOD CELL COUNT(AUTO) 4.06 MIL/uL (4.00-5.20); RED CELL DISTRIBUTION WIDTH 15.9 % (11.5-14.5)
[2023-01-22 15:24] LABS: ALANINE AMINOTRANSFERASE 8 U/L (12-78); ALKALINE PHOSPHATASE 58 U/L (46-116); CARBAMAZEPINE (TEGRETOL) 1.8 mcg/mL (4.0-12.0)
[2023-01-22 15:25] LABS: ACETAMINOPHEN < 2 mcg/mL (10-30)
[2023-01-22] MEDS ORDERED: MAGNESIUM SULFATE 1 GM in DEXTROSE 5%-WATER 50 ML IV ONE (15:30)
[2023-01-22] MEDS ORDERED: POTASSIUM PHOS,M-BASIC-D-BASIC 10 MMOL in DEXTROSE 5%-WATER 100 ML IV ONE (15:30)
[2023-01-22 15:54] LABS: SALICYLATE 1.3 mg/dL (2.8-20.0)
[2023-01-22 22:15] LABS: AMPHET/METH SCREEN,URINE POSITIVE (NEGATIVE); BARBITURATE SCREEN, URINE NEGATIVE (NEGATIVE); BENZODIAZEPINES SCREEN,URINE POSITIVE (NEGATIVE); CANNABINOID SCREEN,URINE NEGATIVE (NEGATIVE); COCAINE SCREEN,URINE NEGATIVE (NEGATIVE); METHADONE SCREEN, URINE NEGATIVE (NEGATIVE); OPIATE SCREEN,URINE NEGATIVE (NEGATIVE); PHENCYCLIDINE SCREEN,URINE NEGATIVE (NEGATIVE)
[2023-01-22] MEDS ORDERED: OMEPRAZOLE 20 MG CAPSULE PO PRN (22:30)
[2023-01-22] MEDS ORDERED: MAGNESIUM HYDROXIDE SUSPENSION 30 ML UDCUP PO PRN (22:30)
[2023-01-22] MEDS ORDERED: ALBUTEROL SULFATE HFA 90 MCG/PUFF 8 GM INHALER IH PRN (22:30)
[2023-01-22] MEDS ORDERED: DOCUSATE SODIUM 100 MG CAPSULE PO PRN (22:30)
[2023-01-22] MEDS ORDERED: ONDANSETRON HCL 4 MG TABLET PO PRN (22:30)
[2023-01-22] MEDS ORDERED: IBUPROFEN 600 MG TABLET PO PRN (22:30)
[2023-01-22] MEDS ORDERED: LOPERAMIDE HCL 2 MG CAPSULE PO PRN (22:30)
[2023-01-22] MEDS ORDERED: CloNIDine HCL 0.1 MG TABLET PO PRN (22:30)
[2023-01-22] MEDS ORDERED: PETROLATUM,WHITE 28 GM JELLY TP PRN (22:30)
[2023-01-22] MEDS ORDERED: ACETAMINOPHEN 325 MG TABLET PO PRN (22:30)
[2023-01-22] MEDS ORDERED: BACITRACIN 28 GM OINTMENT TP PRN (22:30)
[2023-01-22] MEDS ORDERED: MAG HYDROX/AL HYDROX/SIMETH ES 30 ML SUSPENSION UDCUP PO PRN (22:30)
[2023-01-23 00:07] VITALS: BP 121/79; PULSE 92; RESP 18; TEMP 98.1; O2SAT 100
[2023-01-23] MEDS: LORazepam 2 MG TABLET PO PRN ×3 (00:07→18:11)
[2023-01-23] MEDS: HALOPERIDOL 5 MG TABLET PO PRN ×3 (00:07→18:11)
[2023-01-23] MEDS: LEVOTHYROXINE SODIUM 112 MCG TABLET PO SCH (06:39)
[2023-01-23 08:57] VITALS: BP 120/73; PULSE 77; RESP 18; TEMP 97.7; O2SAT 98
[2023-01-23] MEDS: VERAPAMIL HCL 120 MG ER TABLET PO SCH (12:48)
[2023-01-23] MEDS: DIVALPROEX SODIUM 500 MG DR TABLET PO SCH (16:19)
[2023-01-23 20:33] VITALS: BP 107/66; PULSE 91; RESP 18; TEMP 97.6; O2SAT 98
[2023-01-23] MEDS: QUEtiapine FUMARATE 300 MG TABLET PO SCH (20:39)
[2023-01-24] MEDS: LEVOTHYROXINE SODIUM 112 MCG TABLET PO SCH (06:35)
[2023-01-24 08:59] VITALS: TEMP 98
[2023-01-24 10:40] VITALS: BP 120/81; PULSE 107; RESP 20; TEMP 98.1
[2023-01-24] MEDS: MULTIVITAMINS WITH MINERALS, THERAPEUTIC TABLET PO SCH (10:42)
[2023-01-24] MEDS: VERAPAMIL HCL 120 MG ER TABLET PO SCH (10:42)
[2023-01-24] MEDS: DIVALPROEX SODIUM 500 MG DR TABLET PO SCH ×2 (10:42→16:17)
[2023-01-24] MEDS: HALOPERIDOL 5 MG TABLET PO PRN ×2 (10:44→19:50)
[2023-01-24] MEDS: LORazepam 2 MG TABLET PO PRN ×2 (10:44→19:50)
[2023-01-24] MEDS: QUEtiapine FUMARATE 300 MG TABLET PO SCH (20:22)
[2023-01-24 20:25] VITALS: BP 95/62; PULSE 74; RESP 18; TEMP 97
[2023-01-25] MEDS: LEVOTHYROXINE SODIUM 112 MCG TABLET PO SCH (06:54)
[2023-01-25 08:00] VITALS: BP 101/62; PULSE 79; RESP 17; TEMP 98.3; O2SAT 98
[2023-01-25] MEDS: VERAPAMIL HCL 120 MG ER TABLET PO SCH (09:27)
[2023-01-25] MEDS: DIVALPROEX SODIUM 500 MG DR TABLET PO SCH ×2 (09:28→16:23)
[2023-01-25] MEDS: MULTIVITAMINS WITH MINERALS, THERAPEUTIC TABLET PO SCH (09:28)
[2023-01-25 20:32] VITALS: BP 92/60; PULSE 78; RESP 18; TEMP 98.1
[2023-01-25] MEDS: QUEtiapine FUMARATE 300 MG TABLET PO SCH (21:02)
[2023-01-25] MEDS: HALOPERIDOL 5 MG TABLET PO PRN (21:38)
[2023-01-25] MEDS: LORazepam 2 MG TABLET PO PRN (21:38)
[2023-01-26] MEDS: LEVOTHYROXINE SODIUM 112 MCG TABLET PO SCH (06:55)
[2023-01-26 09:00] VITALS: BP 104/63; PULSE 80; RESP 17; TEMP 97.6; O2SAT 100
[2023-01-26] MEDS: MULTIVITAMINS WITH MINERALS, THERAPEUTIC TABLET PO SCH (12:03)
[2023-01-26] MEDS: DIVALPROEX SODIUM 500 MG DR TABLET PO SCH ×2 (12:03→16:31)
[2023-01-26] MEDS: VERAPAMIL HCL 120 MG ER TABLET PO SCH (12:03)
[2023-01-26] MEDS: LORazepam 2 MG TABLET PO PRN (16:31)
[2023-01-26] MEDS: HALOPERIDOL 5 MG TABLET PO PRN (16:31)
[2023-01-26] MEDS: QUEtiapine FUMARATE 300 MG TABLET PO SCH (20:44)
[2023-01-26 20:48] VITALS: BP 100/75; PULSE 85; RESP 19; TEMP 98; O2SAT 99
[2023-01-27] MEDS: LEVOTHYROXINE SODIUM 112 MCG TABLET PO SCH (06:45)
[2023-01-27] MEDS: VERAPAMIL HCL 120 MG ER TABLET PO SCH (09:08)
[2023-01-27] MEDS: DIVALPROEX SODIUM 500 MG DR TABLET PO SCH ×2 (09:08→16:11)
[2023-01-27] MEDS: MULTIVITAMINS WITH MINERALS, THERAPEUTIC TABLET PO SCH (09:08)
[2023-01-27 09:31] VITALS: BP 103/64; PULSE 76; RESP 18; TEMP 97.5
[2023-01-27] MEDS: HALOPERIDOL 5 MG TABLET PO PRN (19:55)
[2023-01-27] MEDS: QUEtiapine FUMARATE 300 MG TABLET PO SCH (20:07)
[2023-01-27 21:03] VITALS: RESP 17
[2023-01-28] MEDS: LEVOTHYROXINE SODIUM 112 MCG TABLET PO SCH (06:17)
[2023-01-28] MEDS: VERAPAMIL HCL 120 MG ER TABLET PO SCH (08:43)
[2023-01-28] MEDS: MULTIVITAMINS WITH MINERALS, THERAPEUTIC TABLET PO SCH (08:43)
[2023-01-28] MEDS: DIVALPROEX SODIUM 500 MG DR TABLET PO SCH ×2 (08:43→16:42)
[2023-01-28 10:31] VITALS: BP 96/60; PULSE 73; RESP 17; TEMP 97.8; O2SAT 96
[2023-01-28] MEDS: HALOPERIDOL 5 MG TABLET PO PRN (19:04)
[2023-01-28 21:01] VITALS: BP 118/64; PULSE 79; RESP 16; TEMP 97.9
[2023-01-28] MEDS: QUEtiapine FUMARATE 300 MG TABLET PO SCH (21:07)
[2023-01-29] MEDS: LEVOTHYROXINE SODIUM 112 MCG TABLET PO SCH (06:52)
[2023-01-29] MEDS: DIVALPROEX SODIUM 500 MG DR TABLET PO SCH ×2 (08:51→16:21)
[2023-01-29] MEDS: VERAPAMIL HCL 120 MG ER TABLET PO SCH (08:51)
[2023-01-29] MEDS: MULTIVITAMINS WITH MINERALS, THERAPEUTIC TABLET PO SCH (08:51)
[2023-01-29 11:03] VITALS: BP 114/71; PULSE 74; RESP 18; TEMP 97.7; O2SAT 98
[2023-01-29 20:11] VITALS: BP 104/66; PULSE 76; RESP 18; TEMP 98; O2SAT 99
[2023-01-29] MEDS: HALOPERIDOL 5 MG TABLET PO PRN (20:59)
[2023-01-29] MEDS: QUEtiapine FUMARATE 300 MG TABLET PO SCH (20:59)
[2023-01-30] MEDS: LEVOTHYROXINE SODIUM 112 MCG TABLET PO SCH (06:33)
[2023-01-30 09:00] VITALS: BP 104/69; PULSE 78; RESP 18; TEMP 97.1; O2SAT 100
[2023-01-30 09:30] VITALS: BP 110/67; PULSE 78; RESP 18
[2023-01-30] MEDS: DIVALPROEX SODIUM 500 MG DR TABLET PO SCH ×2 (09:44→16:07)
[2023-01-30] MEDS: VERAPAMIL HCL 120 MG ER TABLET PO SCH (09:44)
[2023-01-30] MEDS: MULTIVITAMINS WITH MINERALS, THERAPEUTIC TABLET PO SCH (09:44)
[2023-01-30] MEDS: HALOPERIDOL 5 MG TABLET PO PRN ×2 (11:21→20:40)
[2023-01-30] MEDS: QUEtiapine FUMARATE 300 MG TABLET PO SCH (20:40)
[2023-01-30 21:52] VITALS: BP 101/59; PULSE 70; RESP 18; TEMP 97.6; O2SAT 98
[2023-01-31] MEDS: LEVOTHYROXINE SODIUM 112 MCG TABLET PO SCH (06:31)
[2023-01-31 08:15] VITALS: BP 116/68; PULSE 72; RESP 18; TEMP 97.4; O2SAT 98
[2023-01-31] MEDS: MULTIVITAMINS WITH MINERALS, THERAPEUTIC TABLET PO SCH (09:19)
[2023-01-31] MEDS: VERAPAMIL HCL 120 MG ER TABLET PO SCH (09:19)
[2023-01-31] MEDS: DIVALPROEX SODIUM 500 MG DR TABLET PO SCH ×2 (09:19→17:02)
[2023-01-31] MEDS: QUEtiapine FUMARATE 300 MG TABLET PO SCH (20:51)
[2023-01-31] MEDS: ZOLPIDEM TARTRATE 10 MG TABLET PO PRN (20:51)
[2023-01-31 21:09] VITALS: BP 115/63; PULSE 69; RESP 18; TEMP 97.7
[2023-02-01] MEDS: LEVOTHYROXINE SODIUM 112 MCG TABLET PO SCH (06:37)
[2023-02-01 08:05] VITALS: BP 112/68; PULSE 79; RESP 18; TEMP 97.4; O2SAT 99
[2023-02-01] MEDS: VERAPAMIL HCL 120 MG ER TABLET PO SCH (08:49)
[2023-02-01] MEDS: DIVALPROEX SODIUM 500 MG DR TABLET PO SCH ×2 (08:50→17:21)
[2023-02-01] MEDS: MULTIVITAMINS WITH MINERALS, THERAPEUTIC TABLET PO SCH (08:50)
[2023-02-01] MEDS: HALOPERIDOL 5 MG TABLET PO PRN (18:22)
[2023-02-01] MEDS: QUEtiapine FUMARATE 300 MG TABLET PO SCH (21:09)
[2023-02-01] MEDS: ZOLPIDEM TARTRATE 10 MG TABLET PO PRN (21:09)
[2023-02-02] MEDS: LEVOTHYROXINE SODIUM 112 MCG TABLET PO SCH (06:38)
[2023-02-02 08:05] VITALS: BP 116/72; PULSE 64; RESP 19; TEMP 97.5
[2023-02-02] MEDS: VERAPAMIL HCL 120 MG ER TABLET PO SCH (08:53)
[2023-02-02] MEDS: DIVALPROEX SODIUM 500 MG DR TABLET PO SCH ×2 (08:53→17:24)
[2023-02-02] MEDS: MULTIVITAMINS WITH MINERALS, THERAPEUTIC TABLET PO SCH (08:53)
[2023-02-02] MEDS: HALOPERIDOL 5 MG TABLET PO PRN (13:04)
[2023-02-02 20:32] VITALS: BP 100/79; PULSE 82; RESP 18; TEMP 97.6
[2023-02-02] MEDS: QUEtiapine FUMARATE 300 MG TABLET PO SCH (20:39)
[2023-02-03] MEDS: LEVOTHYROXINE SODIUM 112 MCG TABLET PO SCH (06:36)
[2023-02-03 08:06] VITALS: BP 121/68; PULSE 98; RESP 18; TEMP 97.7; O2SAT 98
[2023-02-03] MEDS: DIVALPROEX SODIUM 500 MG DR TABLET PO SCH ×2 (08:53→17:31)
[2023-02-03] MEDS: VERAPAMIL HCL 120 MG ER TABLET PO SCH (08:53)
[2023-02-03] MEDS: MULTIVITAMINS WITH MINERALS, THERAPEUTIC TABLET PO SCH (08:53)
[2023-02-03] MEDS: HALOPERIDOL 5 MG TABLET PO PRN (10:52)
[2023-02-03 20:29] VITALS: BP 116/71; PULSE 79; RESP 20; TEMP 97.7; O2SAT 98
[2023-02-03] MEDS: QUEtiapine FUMARATE 300 MG TABLET PO SCH (21:53)
[2023-02-04] MEDS: LEVOTHYROXINE SODIUM 112 MCG TABLET PO SCH (06:30)
[2023-02-04 08:20] VITALS: BP 112/65; PULSE 73; RESP 16; TEMP 97.7; O2SAT 99
[2023-02-04] MEDS: MULTIVITAMINS WITH MINERALS, THERAPEUTIC TABLET PO SCH (08:54)
[2023-02-04] MEDS: DIVALPROEX SODIUM 500 MG DR TABLET PO SCH (08:54)
[2023-02-04] MEDS: VERAPAMIL HCL 120 MG ER TABLET PO SCH (08:54)
[2023-02-04] MEDS ORDERED: FLUoxetine HCL 20 MG CAPSULE PO SCH (09:00)
[2023-02-04] MEDS ORDERED: FLUO20CA36 PO (14:22)
[2023-02-04] MEDS ORDERED: DIVA-112 PO (14:22)
[2023-02-04] MEDS ORDERED: QUET300T19 PO (14:22)
== END 2023-02-04 15:20 | disposition home or self-care (01) | DRG 885 ==
LOC: EMS 14:00 → 3EI 19:00
PROVIDERS: ADMIT Psychiatry & Neurology Psychiatry; ATTEND Psychiatry & Neurology Psychiatry
DX: F25.9 Schizoaffective disorder, unspecified (principal); R45.851 Suicidal ideations; E89.0 Postprocedural hypothyroidism; K59.00 Constipation, unspecified; J45.909 Unspecified asthma, uncomplicated; Z20.822 Contact with and (suspected) exposure to COVID-19; F31.9 Bipolar disorder, unspecified; F90.9 Attention-deficit hyperactivity disorder, unspecified type; F44.81 Dissociative identity disorder; I10 Essential (primary) hypertension; F19.10 Other psychoactive substance abuse, uncomplicated; Z88.8 Allergy status to other drugs, medicaments and biological substances; Z79.899 Other long term (current) drug therapy
CPT/HCPCS: 80053; 80156; 80164; 80307; 80346; 83735; 84100; 84702; 85025; 93005; 99285; G0480; G0481; J0712; J3475; J3490; J7060

== ENCOUNTER 2023-11-19 04:41 | Inpatient (IN) | payer MEDICAID, MEDICARE, SELFPAY ==
[~2023-11-19] VITALS: Ht 170.2 cm; Wt 59.9 kg
[~2023-11-19 04:41] MED LIST changes: +DIVA-112 PO; +FLUO20CA36 PO; -PRAZ1 PO; -PROZ20 PO; +QUET300T19 PO
[2023-11-19 06:01] LABS: GLUCOMETER DEV NAME(LOC) POC.BV; POC SARS-COV2 AG, FIA NEGATIVE (NEGATIVE)
[2023-11-19] MEDS ORDERED: D AM PO (08:44)
[2023-11-19] MEDS ORDERED: BIOT25008 PO (08:44)
[2023-11-19] MEDS ORDERED: FREM225S SQ (08:44)
[2023-11-19 16:38] VITALS: BP 100/58; PULSE 83; RESP 16; TEMP 98.4; O2SAT 99
[2023-11-19 20:04] VITALS: TEMP 97.8
[2023-11-20] MEDS ORDERED: CloNIDine HCL 0.1 MG TABLET PO PRN (04:15)
[2023-11-20] MEDS ORDERED: IBUPROFEN 400 MG TABLET PO PRN (04:15)
[2023-11-20] MEDS ORDERED: ONDANSETRON HCL 4 MG TABLET PO PRN (04:15)
[2023-11-20] MEDS ORDERED: LOPERAMIDE HCL 2 MG CAPSULE PO PRN (04:15)
[2023-11-20] MEDS ORDERED: MAG HYDROX/ALUMINUM HYD/SIMETH ES 30 ML SUSPENSION UDCUP PO PRN (04:15)
[2023-11-20] MEDS ORDERED: GuaiFENesin/D-METHORPHAN [SUGAR-FREE] 200-20MG/10 ML SYRUP UDCUP PO PRN (04:15)
[2023-11-20] MEDS ORDERED: ACETAMINOPHEN 325 MG TABLET PO PRN (04:15)
[2023-11-20] MEDS ORDERED: DOCUSATE SODIUM 100 MG CAPSULE PO PRN (04:15)
[2023-11-20] MEDS ORDERED: MAGNESIUM HYDROXIDE SUSPENSION 30 ML UDCUP PO PRN (04:15)
[2023-11-20] MEDS ORDERED: ALBUTEROL SULFATE HFA 90 MCG/PUFF 8 GM INHALER IH PRN (04:15)
[2023-11-20] MEDS ORDERED: PETROLATUM,WHITE 28 GM JELLY TP PRN (04:15)
[2023-11-20] MEDS ORDERED: NICOTINE 14 MG/24 HOUR PATCH TD PRN (04:15)
[2023-11-20] MEDS: LEVOTHYROXINE SODIUM 112 MCG TABLET PO SCH (06:57)
[2023-11-20] MEDS ORDERED: LEVOTHYROXINE SODIUM 112 MCG TABLET PO SCH (07:00)
[2023-11-20 09:46] VITALS: PULSE 78; RESP 17; TEMP 98; O2SAT 95
[2023-11-20] MEDS: LORazepam 2 MG TABLET PO PRN (12:33)
[2023-11-20] MEDS: DIVALPROEX SODIUM 500 MG DR TABLET PO SCH (16:45)
[2023-11-20 20:41] VITALS: BP 105/63; PULSE 96; RESP 18; TEMP 98.4; O2SAT 98
[2023-11-20] MEDS: ZOLPIDEM TARTRATE 10 MG TABLET PO PRN (21:45)
[2023-11-20] MEDS: QUEtiapine FUMARATE 300 MG TABLET PO SCH (21:45)
[2023-11-21 08:15] LABS: CHOL/HDL RATIO 2.4 (3.9-5.7); THYROID STIMULATING HORMONE 15.21 uIU/mL (0.36-3.74)
[2023-11-21] MEDS: FLUoxetine HCL 20 MG CAPSULE PO SCH (08:15)
[2023-11-21] MEDS: MULTIVITAMINS WITH MINERALS, THERAPEUTIC TABLET PO ONE (08:15)
[2023-11-21 08:18] VITALS: TEMP 97.9
[2023-11-21] MEDS: HALOPERIDOL 5 MG TABLET PO PRN (13:19)
[2023-11-21 20:17] VITALS: RESP 18
[2023-11-22 08:16] VITALS: RESP 17
[2023-11-23 09:52] VITALS: BP 110/70; PULSE 81; RESP 17; TEMP 97.6; O2SAT 98
[2023-11-23 20:04] VITALS: BP 100/70; PULSE 91; RESP 18; TEMP 97.4; O2SAT 97
[2023-11-24 13:52] VITALS: RESP 17
[2023-11-24 20:15] VITALS: BP 117/72; PULSE 89; RESP 18; TEMP 97.7; O2SAT 98
[2023-11-24 22:06] LABS: HCG,QUAL URINE NEGATIVE (NEGATIVE)
[2023-11-24 22:07] LABS: APPEARANCE,URINE CLEAR (CLEAR); BILIRUBIN,URINE NEGATIVE (NEGATIVE); COLOR,URINE YELLOW (YELLOW); GLUCOSE, URINE (UA) NEGATIVE (NEGATIVE); KETONES,URINE TRACE mg/dL (NEGATIVE); LEUKOCYTE ESTERASE ,URINE TRACE (NEGATIVE); NITRATE,URINE NEGATIVE (NEGATIVE); OCCULT BLOOD,URINE NEGATIVE (NEGATIVE); PH,URINE 6.5 (5.0-8.0); PROTEIN,URINE TRACE mg/dL (NEGATIVE); UROBILINOGEN,URINE <=1.0 mg/dL (<=1.0)
[2023-11-24 22:08] LABS: PH,URINE DRUG SCREEN 6.5 (5.0-8.0)
[2023-11-24 22:12] LABS: ALCOHOL, URINE DRUG SCREEN NEGATIVE (NEGATIVE); AMPHET/METH SCREEN,URINE NEGATIVE (NEGATIVE); BARBITURATE SCREEN, URINE NEGATIVE (NEGATIVE); BENZODIAZEPINES SCREEN,URINE NEGATIVE (NEGATIVE); CANNABINOID SCREEN,URINE NEGATIVE (NEGATIVE); COCAINE SCREEN,URINE NEGATIVE (NEGATIVE); METHADONE SCREEN, URINE NEGATIVE (NEGATIVE); OPIATE SCREEN,URINE NEGATIVE (NEGATIVE); PHENCYCLIDINE SCREEN,URINE NEGATIVE (NEGATIVE)
[2023-11-24 22:17] LABS: RBC,URINE None Seen /HPF (0-2)
[2023-11-24 22:18] LABS: BACTERIA,URINE None Seen /HPF (None Seen); WBC,URINE 0-2 /HPF (0-5); YEAST,URINE Moderate /HPF (None Seen)
[2023-11-25 10:38] VITALS: RESP 17
[2023-11-25 20:06] VITALS: BP 97/61; PULSE 85; RESP 18; TEMP 97.2; O2SAT 97
[2023-11-26 08:02] VITALS: BP 104/61; PULSE 97; RESP 17; TEMP 97.3; O2SAT 99
[2023-11-26 20:57] VITALS: BP 95/49; PULSE 72; RESP 18; TEMP 97.3; O2SAT 100
[2023-11-27 16:44] VITALS: BP 97/61; PULSE 85; RESP 18; TEMP 98; O2SAT 99
[2023-11-27 20:10] VITALS: RESP 18
[2023-11-28 10:00] VITALS: RESP 18
[2023-11-29 08:02] VITALS: BP 97/62; PULSE 81; RESP 18; TEMP 98.2; O2SAT 100
[2023-11-29 21:26] VITALS: BP 101/60; PULSE 79; RESP 17; TEMP 97.8
[2023-11-30 08:23] VITALS: BP 98/59; PULSE 79; RESP 16; TEMP 98.3; O2SAT 99
[2023-11-30 20:16] VITALS: BP 96/59; PULSE 90; RESP 18; TEMP 97.2; O2SAT 97
[2023-12-01 10:35] VITALS: RESP 18
[2023-12-01 20:14] VITALS: BP 91/61; PULSE 80; RESP 18; TEMP 97.6; O2SAT 96
[2023-12-02 14:28] VITALS: BP 98/59; PULSE 95; RESP 17; TEMP 98.6; O2SAT 95
[2023-12-02 20:14] VITALS: BP 101/59; PULSE 79; RESP 18; TEMP 98.1; O2SAT 97
[2023-12-03 11:31] VITALS: RESP 17; O2SAT 98
[2023-12-03 20:30] VITALS: BP 104/61; PULSE 77; RESP 18; TEMP 98.1; O2SAT 98
[2023-12-04 08:05] VITALS: BP 95/56; PULSE 73; RESP 18; TEMP 97.4; O2SAT 98
[2023-12-04 20:35] VITALS: BP 110/75; PULSE 68; RESP 19; TEMP 97; O2SAT 96
[2023-12-05] MEDS: BuPROPion HCL XL 150 MG ER TABLET PO SCH (08:57)
[2023-12-05 15:51] VITALS: BP 101/62; PULSE 87; RESP 18; TEMP 98.2; O2SAT 98
[2023-12-05 20:24] VITALS: BP 121/71; PULSE 85; RESP 18; TEMP 97.9
[2023-12-06 08:21] VITALS: BP 113/69; PULSE 84; RESP 17; TEMP 97.4; O2SAT 100
[2023-12-06 20:30] VITALS: BP 115/65; PULSE 79; RESP 18; TEMP 97.7; O2SAT 99
[2023-12-07 08:40] VITALS: BP 91/55; PULSE 78; RESP 16; TEMP 97.8; O2SAT 98
[2023-12-07 20:19] VITALS: BP 100/65; PULSE 84; RESP 18; TEMP 97.4; O2SAT 98
[2023-12-07] MEDS: QUEtiapine FUMARATE 200 MG TABLET PO SCH (20:53)
[2023-12-08 10:47] VITALS: BP 106/64; PULSE 78; RESP 18; TEMP 97.8; O2SAT 98
[2023-12-08 21:16] VITALS: BP 102/74; PULSE 83; RESP 18; TEMP 97.9; O2SAT 97
[2023-12-09 09:21] VITALS: BP 100/66; PULSE 80; RESP 17; TEMP 97.6; O2SAT 98
[2023-12-09 20:35] VITALS: BP 105/69; PULSE 79; RESP 18; TEMP 97.8
[2023-12-10 09:46] VITALS: RESP 18; TEMP 97.8
[2023-12-10 21:09] VITALS: BP 126/77; PULSE 72; RESP 18; TEMP 97.1; O2SAT 97
[2023-12-11 08:57] VITALS: RESP 18; TEMP 98.1; O2SAT 98
[2023-12-11 20:35] VITALS: BP 102/64; PULSE 75; RESP 18; TEMP 97.5; O2SAT 98
[2023-12-12 09:22] VITALS: BP 91/60; PULSE 73; RESP 17; TEMP 98.3; O2SAT 98
[2023-12-12 10:02] VITALS: BP 104/68; PULSE 72; RESP 18; TEMP 97.6
[2023-12-12 21:33] VITALS: BP 95/55; PULSE 83; RESP 18; TEMP 97; O2SAT 98
[2023-12-13 09:07] VITALS: BP 118/69; PULSE 81; RESP 18; TEMP 98; O2SAT 98
[2023-12-13 20:31] VITALS: RESP 18
[2023-12-14 08:46] VITALS: BP 96/61; PULSE 89; RESP 18; O2SAT 99
[2023-12-14] MEDS ORDERED: QUEtiapine FUMARATE 25 MG TABLET PO PRN (17:15)
[2023-12-14 20:36] VITALS: BP 111/78; PULSE 76; RESP 19; TEMP 97.1; O2SAT 98
[2023-12-15 11:40] VITALS: TEMP 97
[2023-12-15 18:44] VITALS: BP 109/67; PULSE 74
[2023-12-15 20:53] VITALS: BP 105/66; PULSE 81; RESP 18; TEMP 98
[2023-12-16 11:06] VITALS: RESP 18
[2023-12-16 23:09] VITALS: BP 119/77; PULSE 74; RESP 18; TEMP 97.6; O2SAT 97
[2023-12-17 09:10] VITALS: BP 104/64; PULSE 82; RESP 18; TEMP 97.1; O2SAT 98
[2023-12-17 10:28] VITALS: BP 103/64; PULSE 82; RESP 18; TEMP 97.5; O2SAT 98
[2023-12-17 16:23] VITALS: BP 115/66; PULSE 68; RESP 18
[2023-12-17 21:39] VITALS: BP 117/68; PULSE 78; RESP 18; TEMP 98; O2SAT 98
[2023-12-18 12:49] VITALS: BP 96/56; PULSE 90; RESP 18; TEMP 97.3; O2SAT 98
[2023-12-18 21:42] VITALS: BP 96/58; PULSE 96; RESP 18; TEMP 97.7; O2SAT 98
[2023-12-19 10:22] VITALS: BP 96/58; PULSE 78; RESP 19; TEMP 97.2; O2SAT 98
[2023-12-19 22:00] VITALS: BP 115/76; PULSE 62; RESP 18; TEMP 97.9; O2SAT 98
[2023-12-20 08:14] LABS: BASOPHILS % (AUTO) 0.8 % (0.0-2.0); EOSINOPHILS % (AUTO) 8.2 % (1.0-6.0); HEMATOCRIT 33.8 % (36-46); HEMOGLOBIN 11.4 g/dL (12.0-16.0); LYMPHOCYTES # (AUTO) 2.1 K/uL (1.0-4.8); LYMPHOCYTES % (AUTO) 38.2 % (22.0-44.0); MEAN CORPUSCULAR HEMOGLOBIN 33.7 pg (26.0-34.0); MEAN CORPUSCULAR HGB CONC 33.6 G/dL (31.0-37.0); MEAN CORPUSCULAR VOLUME 100 fL (80-100); MONOCYTES # (AUTO) 0.5 K/uL (0.1-1.0); MONOCYTES % (AUTO) 9.8 % (2.0-9.0); NEUTROPHILS # (AUTO) 2.3 K/uL (1.8-7.7); PLATELET COUNT (AUTO) 156 K/uL (150-450); RED BLOOD CELL COUNT(AUTO) 3.37 MIL/uL (4.00-5.20); RED CELL DISTRIBUTION WIDTH 15.2 % (11.5-14.5); WHITE BLOOD COUNT (AUTO) 5.5 K/uL (4.5-11.0)
[2023-12-20 08:32] LABS: ANION GAP 6 mmol/L (8-16); CALCIUM, TOTAL 8.4 mg/dL (8.8-10.5); CARBON DIOXIDE 32 mmol/L (22-29); CHLORIDE 100 mmol/L (98-107); GLOMERULAR FILTR. RATE CALC > 60 mL/min (>60); GLUCOSE,RANDOM 83 mg/dL (70-110); POTASSIUM 4.1 mmol/L (3.5-5.1); SODIUM SERUM 138 mmol/L (136-145); UREA NITROGEN, BLOOD 13 mg/dL (7-18)
[2023-12-20 09:11] VITALS: BP 102/71; PULSE 69; RESP 18; TEMP 97.6; O2SAT 98
[2023-12-20 20:34] VITALS: BP 99/62; PULSE 80; RESP 18; TEMP 97.8; O2SAT 98
[2023-12-21 15:00] VITALS: BP 105/70; PULSE 104; RESP 20; TEMP 98
[2023-12-21 21:37] VITALS: BP 96/63; PULSE 88; RESP 18; TEMP 97.4; O2SAT 98
[2023-12-22 08:00] VITALS: BP 104/66; PULSE 81; RESP 16; TEMP 98.4; O2SAT 97
[2023-12-22 20:49] VITALS: BP 108/66; PULSE 98; RESP 18; TEMP 98.7; O2SAT 98
[2023-12-23 09:47] VITALS: BP 100/62; PULSE 80; RESP 18; TEMP 96.8; O2SAT 98
[2023-12-23 20:33] VITALS: BP 111/71; PULSE 71; RESP 18; TEMP 97.4
[2023-12-24 14:30] VITALS: RESP 17; TEMP 98
[2023-12-24] MEDS: QUEtiapine FUMARATE 300 MG TABLET PO SCH (21:21)
[2023-12-24 21:24] VITALS: BP 110/70; PULSE 70; RESP 18; TEMP 97.9; O2SAT 98
[2023-12-24 22:08] VITALS: BP 112/72; PULSE 72; RESP 18; TEMP 97.5; O2SAT 98
[2023-12-25 08:00] VITALS: BP 85/51; PULSE 79; RESP 18; TEMP 97.4; O2SAT 98
[2023-12-25] MEDS: BuPROPion HCL XL 150 MG ER TABLET PO SCH (08:41)
[2023-12-25 16:11] VITALS: BP 104/74; PULSE 106
[2023-12-25 22:39] VITALS: BP 106/60; PULSE 82; RESP 18; TEMP 98.9; O2SAT 99
[2023-12-26] MEDS ORDERED: DIVA-112 PO (09:24)
[2023-12-26] MEDS ORDERED: BUPR-49 PO (09:24)
[2023-12-26] MEDS ORDERED: QUET300T19 PO (09:24)
[2023-12-26] MEDS ORDERED: FLUO20CA36 PO (09:24)
== END 2023-12-26 12:21 | disposition home or self-care (01) | DRG 885 ==
LOC: 3EC 13:59 → 3EI 12-08 18:36
PROVIDERS: ADMIT Psychiatry & Neurology Child & Adolescent Psychiatry; ATTEND Psychiatry & Neurology Child & Adolescent Psychiatry
PROC: GZHZZZZ Group Psychotherapy (ICD-10-PCS; principal; 2023-11-28)
DX: F25.1 Schizoaffective disorder, depressive type (principal); E03.9 Hypothyroidism, unspecified; G47.00 Insomnia, unspecified; F41.9 Anxiety disorder, unspecified; F10.10 Alcohol abuse, uncomplicated; Z20.822 Contact with and (suspected) exposure to COVID-19; F19.10 Other psychoactive substance abuse, uncomplicated; I10 Essential (primary) hypertension; F90.9 Attention-deficit hyperactivity disorder, unspecified type; Z79.899 Other long term (current) drug therapy; Z88.8 Allergy status to other drugs, medicaments and biological substances
CPT/HCPCS: 80048; 80061; 80164; 80307; 81001; 83036; 84436; 84443; 84703; 85025

== ENCOUNTER 2023-11-19 06:38 | Emergency (ER) | payer MEDICARE ==
[~2023-11-19] VITALS: Ht 170.2 cm; Wt 54.5 kg
[2023-11-19 08:26] VITALS: TEMP 98
[2023-11-19 08:40] LABS: COVID AG,FIA SOURCE NASAL SWAB
[2023-11-19] MEDS ORDERED: D AM PO (08:44)
[2023-11-19] MEDS ORDERED: FREM225S SQ (08:44)
[2023-11-19] MEDS ORDERED: BIOT25008 PO (08:44)
[2023-11-19 08:49] LABS: BASOPHILS % (AUTO) 0.3 % (0.0-2.0); EOSINOPHILS % (AUTO) 2.8 % (1.0-6.0); HEMATOCRIT 35.5 % (36-46); LYMPHOCYTES # (AUTO) 1.2 K/uL (1.0-4.8); LYMPHOCYTES % (AUTO) 22.9 % (22.0-44.0); MEAN CORPUSCULAR HEMOGLOBIN 33.3 pg (26.0-34.0); MEAN CORPUSCULAR HGB CONC 33.8 G/dL (31.0-37.0); MEAN CORPUSCULAR VOLUME 99 fL (80-100); MONOCYTES # (AUTO) 0.7 K/uL (0.1-1.0); MONOCYTES % (AUTO) 13.7 % (2.0-9.0); NEUTROPHILS # (AUTO) 3.2 K/uL (1.8-7.7); NEUTROPHILS % (AUTO) 60.3 % (40.0-70.0); PLATELET COUNT (AUTO) 184 K/uL (150-450); WHITE BLOOD COUNT (AUTO) 5.4 K/uL (4.5-11.0)
[2023-11-19 08:58] LABS: ANION GAP 10 mmol/L (8-16); CALCIUM, TOTAL 8.5 mg/dL (8.8-10.5); CARBON DIOXIDE 28 mmol/L (22-29); CHLORIDE 100 mmol/L (98-107); CREATININE 0.76 mg/dL (0.60-1.30); GLOMERULAR FILTR. RATE CALC > 60 mL/min (>60); GLUCOSE,RANDOM 78 mg/dL (70-110); POTASSIUM 3.4 mmol/L (3.5-5.1); SODIUM SERUM 138 mmol/L (136-145); UREA NITROGEN, BLOOD 19 mg/dL (7-18)
[2023-11-19 08:59] LABS: ALCOHOL, URINE DRUG SCREEN NEGATIVE (NEGATIVE); AMPHET/METH SCREEN,URINE POSITIVE (NEGATIVE); BARBITURATE SCREEN, URINE NEGATIVE (NEGATIVE); BENZODIAZEPINES SCREEN,URINE POSITIVE (NEGATIVE); CANNABINOID SCREEN,URINE NEGATIVE (NEGATIVE); COCAINE SCREEN,URINE NEGATIVE (NEGATIVE); METHADONE SCREEN, URINE NEGATIVE (NEGATIVE); OPIATE SCREEN,URINE NEGATIVE (NEGATIVE); PHENCYCLIDINE SCREEN,URINE NEGATIVE (NEGATIVE)
[2023-11-19 09:04] LABS: ALANINE AMINOTRANSFERASE 12 U/L (12-78); ALBUMIN 3.5 g/dL (3.4-5.0); ALKALINE PHOSPHATASE 44 U/L (46-116); ASPARTATE AMINOTRANSFERASE 15 U/L (15-37); BILIRUBIN,TOTAL 0.3 mg/dL (0.1-1.0); TOTAL PROTEIN, SERUM 7.1 g/dL (6.4-8.2)
[2023-11-19 09:06] LABS: SARS-COV2 (COVID) ANTIGEN,FIA Negative (Negative)
[2023-11-19 09:08] LABS: ALCOHOL, BLOOD (SERUM) < 3 mg/dL (0-10)
[2023-11-19] MEDS: POTASSIUM CHLORIDE 20 MEQ ER TABLET PO ONE (09:34)
[2023-11-19] MEDS: PERTUSS(ACELL),DIPH,TET/PF 0.5 ML SYRINGE [ADULT] IM. ONE (09:35)
[2023-11-19 09:57] LABS: ACETAMINOPHEN < 2 mcg/mL (10-30)
[2023-11-19] MEDS ORDERED: HALOPERIDOL LACTATE 5 MG/ML VIAL ONE (14:11)
[2023-11-19] MEDS ORDERED: LORazepam 2 MG/ML VIAL ONE (14:11)
[2023-11-19] MEDS ORDERED: DiphenhydrAMINE HCL 50 MG/ML VIAL ONE (14:11)
[2023-11-19] MEDS: LORazepam 2 MG/ML VIAL IM ONE (14:24)
[2023-11-19] MEDS: DiphenhydrAMINE HCL 50 MG/ML VIAL IM ONE (14:24)
[2023-11-19] MEDS: HALOPERIDOL LACTATE 5 MG/ML VIAL IM ONE (14:25)
[2023-11-19 14:29] VITALS: BP 132/50; PULSE 80; RESP 16
== END 2023-11-19 15:51 | disposition home or self-care (01) ==
LOC: EMS 06:39
DX: R45.851 Suicidal ideations (principal); F31.9 Bipolar disorder, unspecified; F20.9 Schizophrenia, unspecified; Z20.822 Contact with and (suspected) exposure to COVID-19
CPT/HCPCS: 99285; 87426; 80053; 85025; 36415; 90715; 90471; 96372; 80307; J1200; J1630; J2060; G0480; G0481

== ENCOUNTER 2023-12-31 15:23 | Inpatient (IN) | payer MEDICARE ==
[~2023-12-31] VITALS: Ht 170.2 cm; Wt 63.1 kg
[~2023-12-31 15:23] MED LIST changes: +BUPR-49 PO; -VERA120T92 PO
[2023-12-31 16:46] LABS: GLUCOMETER DEV NAME(LOC) POC.BV; POC SARS-COV2 AG, FIA NEGATIVE (NEGATIVE)
[2023-12-31] MEDS: LORazepam 2 MG TABLET PO PRN (17:24)
[2023-12-31] MEDS: HALOPERIDOL 5 MG TABLET PO PRN (17:24)
[2023-12-31 18:13] VITALS: BP 114/58; PULSE 98; RESP 18; TEMP 98; O2SAT 97
[2023-12-31 20:40] VITALS: BP 115/65; PULSE 94; RESP 19; TEMP 98.2; O2SAT 98
[2024-01-01 06:43] VITALS: BP 109/78; PULSE 88; RESP 18; TEMP 98.5; O2SAT 99
[2024-01-01] MEDS ORDERED: ALBUTEROL SULFATE HFA 90 MCG/PUFF 8 GM INHALER IH PRN (06:45)
[2024-01-01] MEDS ORDERED: GuaiFENesin/D-METHORPHAN [SUGAR-FREE] 200-20MG/10 ML SYRUP UDCUP PO PRN (06:45)
[2024-01-01] MEDS ORDERED: CloNIDine HCL 0.1 MG TABLET PO PRN (06:45)
[2024-01-01] MEDS ORDERED: LOPERAMIDE HCL 2 MG CAPSULE PO PRN (06:45)
[2024-01-01] MEDS ORDERED: MAG HYDROX/ALUMINUM HYD/SIMETH ES 30 ML SUSPENSION UDCUP PO PRN (06:45)
[2024-01-01] MEDS ORDERED: ACETAMINOPHEN 325 MG TABLET PO PRN (06:45)
[2024-01-01] MEDS ORDERED: DOCUSATE SODIUM 100 MG CAPSULE PO PRN (06:45)
[2024-01-01] MEDS ORDERED: IBUPROFEN 400 MG TABLET PO PRN (06:45)
[2024-01-01] MEDS ORDERED: ONDANSETRON HCL 4 MG TABLET PO PRN (06:45)
[2024-01-01] MEDS ORDERED: NICOTINE 14 MG/24 HOUR PATCH TD PRN (06:45)
[2024-01-01] MEDS ORDERED: MAGNESIUM HYDROXIDE SUSPENSION 30 ML UDCUP PO PRN (06:45)
[2024-01-01] MEDS ORDERED: PETROLATUM,WHITE 28 GM JELLY TP PRN (06:45)
[2024-01-01 08:22] VITALS: BP 103/80; PULSE 90; RESP 17; TEMP 97.2; O2SAT 95
[2024-01-01 08:37] LABS: BASOPHILS % (AUTO) 0.4 % (0.0-2.0); EOSINOPHILS % (AUTO) 9.1 % (1.0-6.0); HEMATOCRIT 34.7 % (36-46); HEMOGLOBIN 11.8 g/dL (12.0-16.0); LYMPHOCYTES # (AUTO) 1.3 K/uL (1.0-4.8); LYMPHOCYTES % (AUTO) 28.8 % (22.0-44.0); MEAN CORPUSCULAR HEMOGLOBIN 33.7 pg (26.0-34.0); MEAN CORPUSCULAR HGB CONC 33.9 G/dL (31.0-37.0); MEAN CORPUSCULAR VOLUME 100 fL (80-100); MONOCYTES # (AUTO) 0.5 K/uL (0.1-1.0); MONOCYTES % (AUTO) 11.1 % (2.0-9.0); NEUTROPHILS # (AUTO) 2.4 K/uL (1.8-7.7); NEUTROPHILS % (AUTO) 50.6 % (40.0-70.0); PLATELET COUNT (AUTO) 180 K/uL (150-450); RED BLOOD CELL COUNT(AUTO) 3.49 MIL/uL (4.00-5.20); WHITE BLOOD COUNT (AUTO) 4.7 K/uL (4.5-11.0)
[2024-01-01 08:59] LABS: ALANINE AMINOTRANSFERASE 17 U/L (12-78); ALBUMIN 3.3 g/dL (3.4-5.0); ALKALINE PHOSPHATASE 41 U/L (46-116); ANION GAP 8 mmol/L (8-16); ASPARTATE AMINOTRANSFERASE 22 U/L (15-37); BILIRUBIN,TOTAL 0.3 mg/dL (0.1-1.0); CALCIUM, TOTAL 8.1 mg/dL (8.8-10.5); CARBON DIOXIDE 28 mmol/L (22-29); CHLORIDE 105 mmol/L (98-107); CHOL/HDL RATIO 2.1 (3.9-5.7); CHOLESTEROL 144 mg/dL (131-200); CREATININE 0.93 mg/dL (0.60-1.30); FREE T4 (FREE THYROXINE) 0.56 ng/dL (0.76-1.46); GLOMERULAR FILTR. RATE CALC > 60 mL/min (>60); GLUCOSE,RANDOM 89 mg/dL (70-110); HCG,QUANTITATIVE 1 mIU/mL (0-6); HDL CHOLESTEROL 67 mg/dL (40-60); LDL CHOL (CALC.) 67 mg/dL (0-130); POTASSIUM 3.5 mmol/L (3.5-5.1); SODIUM SERUM 141 mmol/L (136-145); THYROID STIMULATING HORMONE 16.88 uIU/mL (0.36-3.74); TOTAL PROTEIN, SERUM 6.6 g/dL (6.4-8.2); TRIGLYCERIDES 49 mg/dL (15-150); UREA NITROGEN, BLOOD 17 mg/dL (7-18)
[2024-01-01] MEDS: FLUoxetine HCL 20 MG CAPSULE PO SCH (09:40)
[2024-01-01] MEDS: BuPROPion HCL XL 150 MG ER TABLET PO SCH (09:41)
[2024-01-01] MEDS ORDERED: LEVOTHYROXINE SODIUM 112 MCG TABLET PO SCH (10:30)
[2024-01-01] MEDS: DIVALPROEX SODIUM 500 MG DR TABLET PO SCH (17:04)
[2024-01-01] MEDS: QUEtiapine FUMARATE 300 MG TABLET PO SCH (20:28)
[2024-01-01 21:12] VITALS: PULSE 98; RESP 19; TEMP 97.5
[2024-01-02] MEDS: LEVOTHYROXINE SODIUM 112 MCG TABLET PO SCH (06:33)
[2024-01-02 08:23] VITALS: BP 110/65; PULSE 92; RESP 18; TEMP 98; O2SAT 96
[2024-01-02 08:28] LABS: APPEARANCE,URINE CLEAR (CLEAR); BILIRUBIN,URINE NEGATIVE (NEGATIVE); COLOR,URINE LIGHT YELLOW (YELLOW); GLUCOSE, URINE (UA) NEGATIVE (NEGATIVE); KETONES,URINE NEGATIVE (NEGATIVE); LEUKOCYTE ESTERASE ,URINE NEGATIVE (NEGATIVE); NITRATE,URINE NEGATIVE (NEGATIVE); OCCULT BLOOD,URINE MODERATE (NEGATIVE); PROTEIN,URINE TRACE mg/dL (NEGATIVE); SPECIFIC GRAVITIY, URINE 1.024 (1.003-1.030); UROBILINOGEN,URINE <=1.0 mg/dL (<=1.0)
[2024-01-02 08:31] LABS: ALCOHOL, URINE DRUG SCREEN NEGATIVE (NEGATIVE); AMPHET/METH SCREEN,URINE NEGATIVE (NEGATIVE); BARBITURATE SCREEN, URINE NEGATIVE (NEGATIVE); BENZODIAZEPINES SCREEN,URINE NEGATIVE (NEGATIVE); CANNABINOID SCREEN,URINE NEGATIVE (NEGATIVE); COCAINE SCREEN,URINE NEGATIVE (NEGATIVE); METHADONE SCREEN, URINE NEGATIVE (NEGATIVE); OPIATE SCREEN,URINE NEGATIVE (NEGATIVE); PHENCYCLIDINE SCREEN,URINE NEGATIVE (NEGATIVE)
[2024-01-02 08:36] LABS: BACTERIA,URINE None Seen /HPF (None Seen); SQUAMOUS EPITHELIAL CELL,UR Few /LPF (None Seen); WBC,URINE None Seen /HPF (0-5)
[2024-01-02 08:47] LABS: CHOL/HDL RATIO 2.3 (3.9-5.7); THYROID STIMULATING HORMONE 26.61 uIU/mL (0.36-3.74)
[2024-01-02] MEDS ORDERED: ESCITALOPRAM OXALATE 10 MG TABLET PO SCH (09:00)
[2024-01-02 20:44] VITALS: BP 106/69; PULSE 103; RESP 18; TEMP 98.1; O2SAT 100
[2024-01-03] MEDS: LEVOTHYROXINE SODIUM 50 MCG TABLET PO SCH (06:45)
[2024-01-03 08:25] VITALS: BP 105/73; PULSE 82; RESP 17; TEMP 97.1; O2SAT 97
[2024-01-03 20:25] VITALS: BP 107/73; PULSE 97; RESP 17; TEMP 98.8; O2SAT 97
[2024-01-04 09:15] VITALS: BP 100/68; PULSE 88; RESP 16; TEMP 97.9; O2SAT 100
[2024-01-04 20:00] VITALS: BP 108/68; PULSE 95; RESP 17; TEMP 98.1; O2SAT 98
[2024-01-05] MEDS: ZOLPIDEM TARTRATE 10 MG TABLET PO PRN (00:43)
[2024-01-05 00:52] VITALS: BP 100/60; PULSE 84; RESP 18; TEMP 97.6; O2SAT 99
[2024-01-05 08:28] VITALS: BP 85/42; PULSE 85; RESP 17; TEMP 97.7; O2SAT 97
[2024-01-05 08:35] VITALS: BP 116/61; PULSE 78; RESP 17; TEMP 97.7
[2024-01-05 08:39] VITALS: BP 116/61
[2024-01-06 08:20] VITALS: BP 108/62; PULSE 70; RESP 19; TEMP 97.7; O2SAT 96
[2024-01-06 22:37] VITALS: BP 100/63; PULSE 86; RESP 16; TEMP 98; O2SAT 98
[2024-01-06] MEDS: QUEtiapine FUMARATE 200 MG TABLET PO SCH (22:54)
[2024-01-07 08:31] VITALS: BP 113/55; PULSE 82; RESP 17; TEMP 96.6; O2SAT 98
[2024-01-07 20:22] VITALS: BP 124/50; PULSE 108; RESP 18; TEMP 96.8; O2SAT 97
[2024-01-08 14:05] VITALS: BP 111/67; PULSE 104; RESP 17; TEMP 97.9; O2SAT 100
[2024-01-08] MEDS: QUEtiapine FUMARATE 300 MG TABLET PO SCH (20:26)
[2024-01-08 21:17] VITALS: BP 100/64; PULSE 64; RESP 18; TEMP 98.8; O2SAT 100
[2024-01-09 08:26] VITALS: BP 105/58; PULSE 83; RESP 17; TEMP 98; O2SAT 97
[2024-01-09 20:46] VITALS: BP 98/62; PULSE 90; RESP 18; TEMP 97.9; O2SAT 98
[2024-01-10 09:27] VITALS: BP 92/57; PULSE 84; RESP 18; TEMP 97.4; O2SAT 98
[2024-01-10 17:30] VITALS: BP 103/72; PULSE 91
[2024-01-10 21:04] VITALS: BP 101/68; PULSE 95; RESP 18; TEMP 98.2; O2SAT 98
[2024-01-11 08:24] VITALS: BP 102/62; PULSE 81; RESP 17; TEMP 97.6; O2SAT 100
[2024-01-11 21:00] VITALS: BP 111/70; PULSE 96; RESP 18; TEMP 97.9; O2SAT 98
[2024-01-12 08:41] VITALS: BP 100/66; PULSE 80; RESP 16; TEMP 97.7; O2SAT 98
[2024-01-12 12:30] VITALS: BP 111/73; PULSE 100; RESP 16
[2024-01-12 21:04] VITALS: BP 104/72; PULSE 99; RESP 18; TEMP 98.6; O2SAT 98
[2024-01-13 10:30] VITALS: BP 105/60; PULSE 100; RESP 16; TEMP 97.6; O2SAT 100
[2024-01-13 14:55] VITALS: BP 107/76; RESP 17; O2SAT 98
[2024-01-13 20:26] VITALS: BP 134/91; PULSE 88; RESP 18; TEMP 98.6; O2SAT 98
[2024-01-14 08:26] VITALS: BP 108/59; PULSE 88; RESP 17; TEMP 97.8; O2SAT 97
[2024-01-14 20:37] VITALS: BP 98/64; PULSE 67; RESP 16; TEMP 97.2; O2SAT 98
[2024-01-15 09:21] VITALS: BP 97/56; PULSE 74; RESP 17; TEMP 96.4; O2SAT 98
[2024-01-15] MEDS ORDERED: TRIH5TAB3 PO (15:30)
[2024-01-15] MEDS: TRIHEXYPHENIDYL HCL 5 MG TABLET PO SCH (16:32)
[2024-01-15 20:26] VITALS: BP 109/74; PULSE 96; RESP 18; TEMP 97.8; O2SAT 98
[2024-01-16 08:41] VITALS: BP 102/53; PULSE 77; RESP 17; TEMP 96.7; O2SAT 99
== END 2024-01-16 10:15 | disposition home or self-care (01) | DRG 885 ==
LOC: B2S 16:07
PROVIDERS: ADMIT Psychiatry & Neurology Child & Adolescent Psychiatry; ATTEND Psychiatry & Neurology Child & Adolescent Psychiatry
PROC: GZHZZZZ Group Psychotherapy (ICD-10-PCS; principal; 2024-01-02)
DX: F25.1 Schizoaffective disorder, depressive type (principal); R45.851 Suicidal ideations; F41.9 Anxiety disorder, unspecified; G47.00 Insomnia, unspecified; I10 Essential (primary) hypertension; Z20.822 Contact with and (suspected) exposure to COVID-19; E03.9 Hypothyroidism, unspecified; F10.10 Alcohol abuse, uncomplicated; F19.10 Other psychoactive substance abuse, uncomplicated; Z79.899 Other long term (current) drug therapy; Z88.8 Allergy status to other drugs, medicaments and biological substances
CPT/HCPCS: 80053; 80061; 80164; 80307; 81001; 83036; 84439; 84443; 84702; 85025

== ENCOUNTER 2024-06-30 11:15 | Inpatient (IN) | payer MEDICARE ==
[~2024-06-30] VITALS: Ht 170.2 cm; Wt 59.1 kg
[~2024-06-30 11:15] MED LIST changes: +FLUO-418 PO; -FLUO20CA36 PO; +TRIH5TAB3 PO
[2024-06-30 11:25] LABS: COVID AG,FIA SOURCE NASAL SWAB
[2024-06-30] MEDS ORDERED: FLUO-418 PO (11:36)
[2024-06-30] MEDS ORDERED: PRAZ1 PO (11:36)
[2024-06-30] MEDS ORDERED: LAMO-24 PO (11:36)
[2024-06-30] MEDS ORDERED: ATOG60TA PO (11:36)
[2024-06-30] MEDS ORDERED: VERA180T61 PO (11:36)
[2024-06-30] MEDS ORDERED: D AMPHETAMINE SALT PO (11:39)
[2024-06-30] MEDS: PERTUSS(ACELL),DIPH,TET/PF 0.5 ML SYRINGE [ADULT] IM. ONE (11:42)
[2024-06-30 11:44] LABS: BASOPHILS % (AUTO) 0.4 % (0.0-2.0); EOSINOPHILS % (AUTO) 5.4 % (1.0-6.0); HEMATOCRIT 34.6 % (36-46); HEMOGLOBIN 11.5 g/dL (12.0-16.0); LYMPHOCYTES # (AUTO) 0.9 K/uL (1.0-4.8); LYMPHOCYTES % (AUTO) 18.7 % (22.0-44.0); MEAN CORPUSCULAR HEMOGLOBIN 31.9 pg (26.0-34.0); MEAN CORPUSCULAR HGB CONC 33.2 G/dL (31.0-37.0); MEAN CORPUSCULAR VOLUME 96 fL (80-100); MONOCYTES # (AUTO) 0.3 K/uL (0.1-1.0); MONOCYTES % (AUTO) 6.2 % (2.0-9.0); NEUTROPHILS # (AUTO) 3.2 K/uL (1.8-7.7); NEUTROPHILS % (AUTO) 69.3 % (40.0-70.0); PLATELET COUNT (AUTO) 233 K/uL (150-450); RED BLOOD CELL COUNT(AUTO) 3.61 MIL/uL (4.00-5.20); RED CELL DISTRIBUTION WIDTH 14.1 % (11.5-14.5); WHITE BLOOD COUNT (AUTO) 4.6 K/uL (4.5-11.0)
[2024-06-30 11:48] LABS: SARS-COV2 (COVID) ANTIGEN,FIA Negative (Negative)
[2024-06-30 11:54] LABS: ANION GAP 5 mmol/L (8-16); CALCIUM, TOTAL 8.5 mg/dL (8.8-10.5); CARBON DIOXIDE 30 mmol/L (22-29); CHLORIDE 103 mmol/L (98-107); CREATININE 0.79 mg/dL (0.60-1.30); GLOMERULAR FILTR. RATE CALC > 60 mL/min (>60); GLUCOSE,RANDOM 100 mg/dL (70-110); SODIUM SERUM 138 mmol/L (136-145); UREA NITROGEN, BLOOD 6 mg/dL (7-18)
[2024-06-30 12:21] LABS: ALCOHOL, BLOOD (SERUM) < 3 mg/dL (0-10)
[2024-06-30 14:05] LABS: PH,URINE DRUG SCREEN 7.5 (5.0-8.0)
[2024-06-30 14:13] LABS: AMPHET/METH SCREEN,URINE NEGATIVE (NEGATIVE); BARBITURATE SCREEN, URINE NEGATIVE (NEGATIVE); BENZODIAZEPINES SCREEN,URINE NEGATIVE (NEGATIVE); CANNABINOID SCREEN,URINE NEGATIVE (NEGATIVE); COCAINE SCREEN,URINE NEGATIVE (NEGATIVE); METHADONE SCREEN, URINE NEGATIVE (NEGATIVE); OPIATE SCREEN,URINE NEGATIVE (NEGATIVE); PHENCYCLIDINE SCREEN,URINE NEGATIVE (NEGATIVE)
[2024-06-30 14:43] LABS: ALCOHOL, URINE DRUG SCREEN NEGATIVE (NEGATIVE)
[2024-06-30] MEDS ORDERED: ZOLPIDEM TARTRATE 10 MG TABLET PO PRN (20:00)
[2024-06-30] MEDS: LORazepam 2 MG TABLET PO PRN (21:51)
[2024-06-30 23:30] VITALS: BP 103/70; PULSE 86; RESP 16; TEMP 96.8; O2SAT 99
[2024-07-01 08:10] VITALS: BP 113/69; PULSE 88; RESP 16; TEMP 97.9; O2SAT 100
[2024-07-01] MEDS ORDERED: BENZOCAINE/MENTHOL LOZENGE PO PRN (08:15)
[2024-07-01] MEDS ORDERED: ALBUTEROL SULFATE HFA 90 MCG/PUFF 8 GM INHALER IH PRN (08:15)
[2024-07-01] MEDS ORDERED: BACITRACIN 28 GM OINTMENT TP PRN (08:15)
[2024-07-01] MEDS ORDERED: ONDANSETRON 4 MG TABLET PO PRN (08:15)
[2024-07-01] MEDS ORDERED: LOPERAMIDE HCL 2 MG CAPSULE PO PRN (08:15)
[2024-07-01] MEDS ORDERED: PETROLATUM,WHITE 28 GM JELLY TP PRN (08:15)
[2024-07-01] MEDS ORDERED: CloNIDine HCL 0.1 MG TABLET PO PRN (08:15)
[2024-07-01] MEDS ORDERED: DOCUSATE SODIUM 100 MG CAPSULE PO PRN (08:15)
[2024-07-01] MEDS ORDERED: OMEPRAZOLE 20 MG CAPSULE PO PRN (08:15)
[2024-07-01] MEDS ORDERED: IBUPROFEN 600 MG TABLET PO PRN (08:15)
[2024-07-01] MEDS ORDERED: MAG HYDROX/ALUMINUM HYD/SIMETH ES 30 ML SUSPENSION UDCUP PO PRN (08:15)
[2024-07-01 09:01] LABS: HEMOGLOBIN A1C 4.9 % (3.8-5.6)
[2024-07-01 16:23] VITALS: BP 101/57; PULSE 87; RESP 16; O2SAT 98
[2024-07-01] MEDS: VERAPAMIL HCL 180 MG ER TABLET PO SCH (16:24)
[2024-07-01 17:21] VITALS: BP 102/63; PULSE 82; RESP 16; O2SAT 99
[2024-07-01] MEDS: QUEtiapine FUMARATE 300 MG TABLET PO SCH (17:22)
[2024-07-01] MEDS: DIVALPROEX SODIUM 500 MG DR TABLET PO SCH (17:22)
[2024-07-01] MEDS: INFLUENZA VIRUS VACCINE TVS (6MO+) 2024-25/PF 45 MCG/0.5 ML SYRINGE IM. ONE (17:30)
[2024-07-01 20:13] VITALS: BP 105/63; PULSE 87; RESP 16; TEMP 98; O2SAT 98
[2024-07-01] MEDS: PRAZOSIN HCL 1 MG CAPSULE PO SCH (20:32)
[2024-07-01] MEDS: MIRTAZAPINE 15 MG TABLET PO SCH (20:32)
[2024-07-02] MEDS: LEVOTHYROXINE SODIUM 112 MCG TABLET PO SCH (06:09)
[2024-07-02 09:28] VITALS: BP 101/66; PULSE 72; RESP 16; TEMP 97.8; O2SAT 98
[2024-07-02 20:58] VITALS: BP 109/69; PULSE 100; RESP 18; TEMP 97.5; O2SAT 99
[2024-07-03 08:09] VITALS: BP 110/67; PULSE 75; RESP 17; TEMP 98.3; O2SAT 98
[2024-07-03] MEDS: MULTIVITAMINS WITH MINERALS, THERAPEUTIC TABLET PO SCH (08:30)
[2024-07-03 10:07] VITALS: BP 102/72; PULSE 60; RESP 15
[2024-07-03 20:14] VITALS: BP 99/63; PULSE 67; RESP 18; TEMP 97.6; O2SAT 98
[2024-07-03] MEDS: ACETAMINOPHEN 325 MG TABLET PO PRN (20:17)
[2024-07-03 21:15] VITALS: RESP 18
[2024-07-04 08:07] VITALS: BP 112/65; PULSE 78; RESP 16; TEMP 97; O2SAT 99
[2024-07-04] MEDS: HALOPERIDOL 5 MG TABLET PO PRN (11:04)
[2024-07-05 12:46] VITALS: BP 106/61; PULSE 85; RESP 16; TEMP 97.3; O2SAT 99
[2024-07-05 20:30] VITALS: BP 107/64; PULSE 100; RESP 16; TEMP 97.4; O2SAT 96
[2024-07-06 08:15] VITALS: BP 123/61; PULSE 85; RESP 16; TEMP 97.7; O2SAT 98
[2024-07-06 20:36] VITALS: BP 101/59; PULSE 67; RESP 18; TEMP 97.9; O2SAT 97
[2024-07-07] MEDS ORDERED: DIVA-112 PO (07:53)
[2024-07-07] MEDS ORDERED: QUET300T2 PO (07:54)
[2024-07-07] MEDS ORDERED: MIRT-89 PO (07:54)
[2024-07-07] MEDS ORDERED: LEVO112T4 PO (08:27)
[2024-07-07] MEDS: MAGNESIUM HYDROXIDE SUSPENSION 30 ML UDCUP PO PRN (08:29)
[2024-07-07 08:55] VITALS: BP 113/78; PULSE 84; RESP 18; TEMP 97.3; O2SAT 100
== END 2024-07-07 10:15 | disposition home or self-care (01) | DRG 885 ==
LOC: EMS 11:15 → B2X 19:49 → EMS 19:54
PROVIDERS: ADMIT Psychiatry & Neurology Psychiatry; ATTEND Psychiatry & Neurology Psychiatry
DX: F25.1 Schizoaffective disorder, depressive type (principal); R45.851 Suicidal ideations; S61.512A Laceration without foreign body of left wrist, initial encounter; K59.00 Constipation, unspecified; J45.909 Unspecified asthma, uncomplicated; I10 Essential (primary) hypertension; F90.9 Attention-deficit hyperactivity disorder, unspecified type; X78.8XXA Intentional self-harm by other sharp object, initial encounter; F19.10 Other psychoactive substance abuse, uncomplicated; E89.0 Postprocedural hypothyroidism; Z88.8 Allergy status to other drugs, medicaments and biological substances; Z20.822 Contact with and (suspected) exposure to COVID-19; Y93.89 Activity, other specified; Y92.89 Other specified places as the place of occurrence of the external cause; Y99.8 Other external cause status; Z79.899 Other long term (current) drug therapy
CPT/HCPCS: 80048; 80061; 80164; 80307; 83036; 84703; 85025; 90686; 90715; 99285; G0480